=== PATIENT | female | born 1975 | race American Indian/Alaskan Native ===

== ENCOUNTER 2017-07-04 19:31 | Emergency (ER) | payer OTHER ==
[~2017-07-04] VITALS: Ht 154.9 cm; Wt 77.1 kg
[~2017-07-04 19:31] MED LIST: CIPRO500 MG PO; CYCLOBENZAPRINE5 MG PO; EPIPEN 2-P0.3 MG/0.3 IM; FLAGYL500 MG PO; LIDODERM700 MG TOP; LISINOPRIL20 MG PO; NAPROSYN500 MG PO; NORCO 5-325 TA1 EACH PO; PERCOCET 5-3251 EACH PO; PHENTERMINE H37.5 M1 PO; PHENTERMINE H37.5 MG PO; PREDNISONE20 MG PO; VICODIN 5-3001 EACH PO; WELLBUTRIN XL300 MG PO; ZOFRAN4 MG PO
[2017-07-04] MEDS ORDERED: TOPAMAX25 MG PO (19:52)
[2017-07-04] MEDS ORDERED: NAPROXEN500 MG PO (20:17)
== END 2017-07-04 20:38 | disposition home or self-care (01) ==
LOC: ED 19:31
DX: J11.1 Influenza due to unidentified influenza virus with other respiratory manifestations (principal); I10 Essential (primary) hypertension; Z90.49 Acquired absence of other specified parts of digestive tract; Z91.018 Allergy to other foods; Z88.2 Allergy status to sulfonamides; Z79.899 Other long term (current) drug therapy
CPT/HCPCS: 99283; J1100

== ENCOUNTER 2017-08-22 23:07 | Emergency (ER) | payer OTHER ==
[~2017-08-22] VITALS: Ht 154.9 cm; Wt 175.0 kg
[~2017-08-22 23:07] MED LIST changes: +NAPROXEN500 MG PO; +TOPAMAX25 MG PO
[2017-08-22] MEDS ORDERED: LISINOPRIL5 MG PO (23:15)
[2017-08-22] MEDS ORDERED: BENADRYL ALLERG25 MG PO (23:16)
[2017-08-22] MEDS ORDERED: AMOXICILLIN500 MG PO (23:32)
== END 2017-08-23 00:04 | disposition home or self-care (01) ==
LOC: ED 23:07
DX: H66.91 Otitis media, unspecified, right ear (principal); J06.9 Acute upper respiratory infection, unspecified; I10 Essential (primary) hypertension; F17.200 Nicotine dependence, unspecified, uncomplicated; Z88.2 Allergy status to sulfonamides; Z91.018 Allergy to other foods; Z79.899 Other long term (current) drug therapy
CPT/HCPCS: 99283

== ENCOUNTER 2019-04-15 15:57 | Emergency (ER) | payer OTHER ==
[~2019-04-15] VITALS: Ht 154.9 cm; Wt 88.5 kg
--- OUTSIDE RECORDS SUMMARY | ~2019-04-15 | XMS | Encounter Summary ---
Demographics + + + | Address | [address] | | | [place] [address] | + + + | Home Phone | | + + + | Preferred Language | Unknown | + + + | Marital Status | | + + + | Protestant Affiliation | Unknown | + + + | Race | or | + + + | Ethnic Group | Not or | + + + Author + + + | Author | [place] [facility] | + + + | Organization | [facility] [employer] [facility] | + + + | Address | Unknown | + + + | Phone | Unavailable | + + + Support + + +---------+ + | Name | Relationship | Address | Phone | + + +---------+ + | Rosemarie Song | ECON | Unknown | | + + +---------+ + Care Team Providers + +------+ + | Care Chef Kitchen Manager Name | Role | Phone | + +------+ + | Marcelle WillsP | PCP | | + +------+ + Encounter Details +--------+ + + + + | Date | Type | Department | Care Team | Description | +--------+ + + + + | 12/10/ | Procedure | [facility] | | | | 2019 | | [facility] | | | | | | [place] [facility] [address] | | | | | [address] | | | | | | Mailcode: [id number] | | | | | | [facility] | | | | | | and Healing, | | | | | | | | | | | | Floor [place], [place] | | | | | | [address] | | | | | | [phone] | | | +--------+ + + + + Social History + +-------+ +--------+------+ | Tobacco Use | Types | Packs/Day | Years | Date | | | | | Used | | + +-------+ +--------+------+ | Never Smoker | | | | | + +-------+ +--------+------+ + +---+---+---+ | Smokeless Tobacco: | | | | | Never Used | | | | + +---+---+---+ + + +---------+ + | Alcohol Use | Drinks/Week | oz/Week | Comments | + + +---------+ + | Yes | | | weekly | + + +---------+ + + + + | Sex Assigned at | Date Recorded | | | | + + + | Not on file | | + + + + + + + | Job Start Date | Occupation | Industry | + + + + | Not on file | Not on file | Not on file | + + + + + + + + | Travel History | Travel Start | Travel End | + + + + + + | No recent travel history available. | + + documented as of this encounter Plan of Treatment +--------+ + + + + | Date | Type | Specialty | Care Team | Description | +--------+ + + + + | 12/06/ | Procedure | Ophthalmology | | | | 2019 | | | | | +--------+ + + + + | 12/06/ | Office | Ophthalmology | Ankita Smith MD | | | 2019 | Visit | | [address] | | | | | | [place], [place] | | | | | | [address] | | | | | | [phone] | | | | | | | | +--------+ + + + + documented as of this encounter Procedures + +--------+ + + + | Procedure Name | Priori | Date/Time | Associated Diagnosis | Comments | | | ty | | | | + +--------+ + + + | AUTOMATED VISUAL | Routin | 12/10/2018 | Infantile or | Results for this | | FIELD, MCCARTHY | e | 10:14 AM | juvenile glaucoma | procedure are in the | | | | PDT | | results section. | + +--------+ + + + documented in this encounter Results AUTOMATED VISUAL FIELD, MCCARTHY (12/10/2018 10:14 AM PDT) + + + | Narrative | Performed At | + + + | Personal Assistant | [facility] | | DocumentationRight EyeThreshold: 24-2 Strategy: [facility] Reliability: [facility] | | good MD: -29.14 PSD: 8.68 Left EyeThreshold: 24-2 | | | Strategy: JOANNE Reliability: good MD: -3.1 PSD: 2.52 | | | Provider DocumentationRight EyeFoveal threshold: reduced Findings: | | | superior arcuate defect, inferior arcuate defect Interpretation: | | | no reference Left EyeFoveal threshold: normal Findings: | | | inferior arcuate defect, superior arcuate defect Interpretation: no | | | reference NotesDense, nearly altitudinal inferior and superior | | | defects ODOD central island, MD -29.14, baselineOS inf>sup arcs, MD | | | -3.10, baseline | | |Strategy: JOANNE | | |Reliability: good | | |MD: -3.1 | | |PSD: 2.52 | | | | | | | | |Provider Documentation | | |Right Eye | | |Foveal threshold: reduced | | |Findings: superior arcuate defect, inferior arcuate defect | | |Interpretation: no reference | | | | | | | | |Left Eye | | |Foveal threshold: normal | | |Findings: inferior arcuate defect, superior arcuate defect | | |Interpretation: no reference | | | | | | | | |Notes | | |Dense, nearly altitudinal inferior and superior defects OD | | |OD central island, MD -29.14, baseline | | |OS inf>sup arcs, MD -3.10, baseline | | | | | + + + + + + + + | Performing | Address | City/State/Zipcode | Phone Number | | Organization | | | | + + + + + | [facility] | [address] | [place] [address] | | | INSTITUTE | [facility]. 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
--- OUTSIDE RECORDS SUMMARY | ~2019-04-15 | XMS | Clinical Summary ---
Demographics + + + | Address | [address] | | | [place] [address] | + + + | Home Phone | | + + + | Preferred Language | Unknown | + + + | Marital Status | | + + + | Mandaeism Affiliation | Unknown | + + + | Race | Unknown | + + + | Ethnic Group | Unknown | + + + Author + + + | Author | [facility] | | | and [place] | + + + | Organization | [facility] | | | and [place] | + + + | Address | Unknown | + + + | Phone | Unavailable | + + + Support + + +---------+ + | Name | Relationship | Address | Phone | + + +---------+ + | Rosemarie Burgos | ECON | Unknown | | + + +---------+ + | Sawyer Lafleur ECON | Unknown | | + + +---------+ + Care Team Providers + +------+ + | Care Junior Linux Systems Administrator Name | Role | Phone | + +------+ + | Jeremie Levin DO | PCP | | + +------+ + Allergies No Known Allergies Medications + + + +---------+------+------+-------+ | Medication | Sig | Dispensed | Refills | Star | End | Statu | | | | | | t | Date | s | | | | | | Date | | | + + + +---------+------+------+-------+ | buPROPion | Take 300 mg by mouth | | 0 | | | Activ | | (WELLBUTRIN XL) 300 | every morning. | | | | | e | | mg 24 hr tablet | | | | | | | + + + +---------+------+------+-------+ | naproxen | Take 500 mg by mouth | | 0 | | | Activ | | (NAPROSYN) 500 mg | 2 times daily (with | | | | | e | | tablet | breakfast & | | | | | | | | dinner). | | | | | | + + + +---------+------+------+-------+ | | Take 1 tablet by | | 0 | | | Activ | | HYDROcodone-acetamin | mouth every 6 hours | | | | | e | | ophen (NORCO) 5-325 | as needed for Pain. | | | | | | | mg per tablet | | | | | | | + + + +---------+------+------+-------+ | phentermine 37.5 | Take 37.5 mg by | | 0 | | | Activ | | MG capsule | mouth every morning. | | | | | e | + + + +---------+------+------+-------+ | topiramate | Take 25 mg by mouth | | 0 | | | Activ | | (TOPAMAX) 25 mg | 2 times daily. | | | | | e | | tablet | | | | | | | + + + +---------+------+------+-------+ Active Problems + + + | Problem | Noted Date | + + + | Spondylosis without myelopathy or radiculopathy, lumbar region | 01/31/2016 | + + + | Trochanteric bursitis of left hip | 12/30/2014 | + + + | Sacroiliitis, not elsewhere classified | 11/11/2014 | + + + | Chronic low back pain-likely multifactorial | 11/11/2014 | + + + | DDD (degenerative disc disease), lumbar | 11/11/2014 | + + + Family History + + +------+ + | Medical History | Relation | Name | Comments | + + +------+ + | Arthritis | Mother | | | + + +------+ + | Bleeding problems | Mother | | | + + +------+ + | Clotting disorder | Mother | | | + + +------+ + | Diabetes | Mother | | | + + +------+ + | High blood pressure | Mother | | | + + +------+ + | Stroke | Mother | | | + + +------+ + + +------+--------+ + | Relation | Name | Status | Comments | + +------+--------+ + | Mother | | | | + +------+--------+ + Social History + +-------+ +--------+------+ | [...] + +---------+ + | Alcohol Use | Drinks/We | oz/Week | Comments | | | ek | | | + + +---------+ + | Yes | | | social | + + +---------+ + + + [...] recent travel history available. | + + Last Filed Vital Signs + + + + | Vital Sign | Reading | Time Taken | + + + + | Blood Pressure | 144/87 | 01/31/2016 1640 PDT | + + + + | Pulse | 85 | 12/05/2015808 PDT | + + + + | Temperature | - | - | + + + + | Respiratory Rate | 18 | 12/05/2015808 PDT | + + + + | Oxygen Saturation | - | - | + + + + | Inhaled Oxygen | - | - | | Concentration | | | + + + + | Weight | 73 kg (161 lb) | 12/05/2015808 PDT | + + + + | Height | 152.4 cm (5') | 12/05/2015808 PDT | + + + + | Body Mass Index | 31.44 | 12/05/2015808 PDT | + + + + Plan of Treatment + + + + + | Health Maintenance | Due Date | Last Done | Comments | + + + + + | Vaccine: | | | | | Dtap/Tdap/Td (1 - | 7 | | | | Tdap) | | | | + + + + + | Cervical Cancer | | | | | Screening (Pap) | 8 | | | + + + + + | Vaccine: Influenza | | | | | (#1) | 9 | | | + + + + + Results Not on filefrom Last 3 Months Insurance + +--------+ +--------+ +---------+--------+ | Payer | Benefi | Subscriber | Effect | Phone | Address | Type | | | t Plan | ID | luz maria | | | | | | / | | Dates | | | | | | Group | | | | | | + +--------+ +--------+ +---------+--------+ | [employer] | MODA | [id number] | | [phone] | | Medica | | MEDICAID HMO | HEALTH | | 016-Pr | 1 | | id | | | MDCD | | esent | | | | | | [place] | | | | | | + +--------+ +--------+ +---------+--------+ | [facility] | IHS | [id number] | | | | Indemn | | SERVICE | YELLOW | | 013-Pr | | | ity | | | HAWK | | esent | | | | + +--------+ +--------+ +---------+--------+ + +--------+ +--------+ + + | Guarantor Name | Accoun | Relation to | Date | Phone | Billing Address | | | t Type | Patient | of | | | | | | | | | | + +--------+ +--------+ + + | Aliza Song | Person | Self [birth year] | [address] | | | al/Fam | | 1976 | [phone] | [place] | | | [place] | | | [address] (Home) | [address] | + +--------+ +--------+ + + Advance Directives Patient has advance care planning documents on file. For more information, please contact:[facility] [place] [address]"
--- OUTSIDE RECORDS SUMMARY | ~2019-04-15 | XMS | Encounter Summary ---
Demographics + + + | Address | [address] | | | [place] [address] | + + + | Home Phone | | + + + | Preferred Language | Unknown | + + + | Marital Status | | + + + | Zoroastrianism Affiliation | Unknown | + + + | Race | or | + + + | Ethnic Group | Not or | + + + Author + + + | Author | [place] [facility] | + + + | Organization | [facility] | + + + | Address | Unknown | + + + | Phone | Unavailable | + + + Support + + +---------+ + | Name | Relationship | Address | Phone | + + +---------+ + | Rosemarie Song | ECON | Unknown | | + + +---------+ + Care Team Providers + +------+ + | Care Gin Feeder Name | Role | Phone | + +------+ + | Marcelle Wills | PCP | | + +------+ + Reason for Visit + + + | Reason | Comments | + + + | Care Questions | | + + + Encounter Details +--------+ + + + + | Date | Type | Department | Care Team | Description | +--------+ + + + + | 01/06/ | Telephone | [facility] | Ankita Smith MD | Care Questions | | 2019 | | [facility] | [address] | | | | | at [facility] [address] | [place], [place] | | | | | Ave Mailcode: | [address] | | | | | [address] | [phone] | | | | | Health and Healing, | | | | | | | | | | | | [place], [place] | | | | | | [address] | | | | | | [phone] | | | +--------+ + + + [...] Procedure | Ophthalmology | | | | 2020 | | | | | +--------+ + + + + | 12/06/ | Office | Ophthalmology | Ankita Smith MD | | | 2020 | Visit | | [address] | | | | | | [facility], [place] | | | | | | [address] | | | | | | [phone] | | | | | | | | +--------+ + + + + documented as of this encounter Visit Diagnoses Not on filedocumented in this encounter"
--- OUTSIDE RECORDS SUMMARY | ~2019-04-15 | XMS | Encounter Summary ---
Demographics + + + | Address | [address] | | | [place] [address] | + + + | Home Phone | | + + + | Preferred Language | Unknown | + + + | Marital Status | | + + + | Scientologist Affiliation | Unknown | + + + | Race | or | + + + | Ethnic Group | Not or | + + + Author + + + | Author | [place] [facility] | + + + | Organization | [facility] | + + + | Address | Unknown | + + + | Phone | Unavailable | + + + Support + + +---------+ + | Name | Relationship | Address | Phone | + + +---------+ + | Rosemarie Song | ECON | Unknown | | + + +---------+ + Care Team Providers + +------+ + | Care Molder Machine Name | Role | Phone | + [...] Care Questions | | 2019 | | [facility] | [address] | | | | | at [facility] [address] | [place], [place] | | | | | Ave Mailcode: | [address] | | | | | [address] | [phone] | | | | | Health and Healing, | | | | | | | | | | | | [place], [place] | | | | | | [address] | | | | | | [phone] | | | +--------+ + + + [...] [address] | | | | | | [facility] [place] [place] [place] | | | | | | [address] | | | | | | [phone] | | | | | | | | +--------+ + + + + documented as of this encounter Visit Diagnoses Not on filedocumented in this encounter"
--- OUTSIDE RECORDS SUMMARY | ~2019-04-15 | XMS | Encounter Summary ---
Demographics + + + | Address | [address] | | | [place] [address] | + + + | Home Phone | | + + + | Preferred Language | Unknown | + + + | Marital Status | | + + + | Sabianism Affiliation | Unknown | + + + | Race | or | + + + | Ethnic Group | Not or | + + + Author + + + | Author | [place] [facility] | + + + | Organization | [facility] [facility] | + + + | Address | Unknown | + + + | Phone | Unavailable | + + + Support + + +---------+ + | Name | Relationship | Address | Phone | + + +---------+ + | Rosemarie Song | ECON | Unknown | | + + +---------+ + Care Team Providers + +------+ + | Care Boilermaker Welder Name | Role | Phone | + +------+ + | Marcelle Wills | PCP | | + +------+ + Reason for Visit + + + | Reason | Comments | + + + | Refill Request | Brimonidine 0.2% | + + + Encounter Details +--------+--------+ + + + | Date | Type | Department | Care Team | Description | +--------+--------+ + + + | 01/05/ | Refill | [facility] | Ankita Smith MD | Refill Request | | 2019 | | [facility] | [address] | (Brimonidine 0.2%) | | | | at [facility] [address] | [place], [place] | | | | | Ave Mailcode: | [address] | | | | | [facility] | [phone] | | | | | Health and Healing, | | | | | | | | | | | | [place], [place] | | | | | | [address] | | | | | | [phone] | | | +--------+--------+ + + + [...] | +--------+ + + + + | 06/08/ | Office | Ophthalmology | Ankita Smith MD | | | 2019 | Visit | | [address] | | | | | | [place], [place] | | | | | | [address] | | | | | | [phone] | | | | | | | | +--------+ + + + + documented as of this encounter Visit Diagnoses + + | Diagnosis | + + | 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
--- OUTSIDE RECORDS SUMMARY | ~2019-04-15 | XMS | Encounter Summary ---
Demographics + + + | Address | [address] | | | [place] [address] | + + + | Home Phone | | + + + | Preferred Language | Unknown | + + + | Marital Status | | + + + | Zoroastrian Affiliation | Unknown | + + + | Race | or | + + + | Ethnic Group | Not or | + + + Author + + + | Author | [place] [facility] | + + + | Organization | [facility] | + + + | Address | Unknown | + + + | Phone | Unavailable | + + + Support + + +---------+ + | Name | Relationship | Address | Phone | + + +---------+ + | Rosemarie Song | ECON | Unknown | | + + +---------+ + Care Team Providers + +------+ + | Care Finance Effectiveness Manager Name | Role | Phone | + +------+ + | Marcelle Wills | PCP | | + +------+ + Reason for Visit + + + | Reason | Comments | + + + | Follow-up visit | | + + + Encounter Details +--------+---------+ + + + | Date | Type | Department | Care Team | Description | +--------+---------+ + + + | 04/15/ | Office | [facility] | Dahlia Daniels MD | Infantile or | | 2019 | Visit | [facility] | [address] | juvenile glaucoma | | | | at [facility] [address] | [place], [place] | (Primary Dx) | | | | Ave Mailcode: | [address] | | | | | [facility] | [phone] | | | | | Health and Healing, | | | | | | | | | | | | Floor [place], [place] | | | | | | [address] | | | | | | [phone] | | | +--------+---------+ + + + Social History + +-------+ [...] + + documented as of this encounter Progress Notes Ing, Dahlia Azul MD - 04/15/2019 9:30 AM PDT IMojgan COT, performed, elements noted in the Base Ophthalmology Exam, visual acuity, HVF. [facility] Progress Note 04/15/2019 PROBLEM-SPECIFIC ASSESSMENT & PLAN NOTES FOR CURRENT ENCOUNTER Infantile or juvenile glaucoma Overview Note: Overview note Last Updated 04/15/2019) Office Visit Written 04/15/2019 by Luzmaria [facility] Summary: Co-managed with: Dr. Moses, will see him for IOP checks and us for imaging and testskye rajan Gonio: Tmax: OD: 57 OS: 40 CCT: 537/564 Drop Allergies/Intolerances: STUDIES: Visual Field Interpretation ([facility] 12/10/2018) Myers 24-2 visual field OD central island, MD -29.14, baseline OS inf>sup arcs, MD -3.10, baseline Visual Field Interpretation ([facility] 04/15/2019) Myers 10-2 visual field OD central island remaining, MD -21.09, baseline OS possible trac inferior scotoma, MD -0.69, baseline OCT interpretation (12/10/2018) Type: Spectralis OD diffuse thinning and schisis, average RNFL thickness 49 um, baseline OS inferior>superior thinnin, average RNFL thickness 77 um, baseline Assessment & Plan Note: (Assessment & Plan note Last Updated 04/15/2019) Office Visit Written 04/15/2019 by Hortensia DOWD, indeterminate stage. - IOP stable in low teens on MTMT - would like IOP <15 mmHg initially - OCT confirms diffuse thinning OD, unknown if schesis playing into things - HVF 24-2 with progression since 2010, but patient untreated with IOP in 30-40's until e met Dr. Moses, so IOP now may be OK to stabilize duenas. - 10- today matches 24-2. - cont MMT OU - will cont. To watch very closely. - Preservative free artificial tears, gels, and ointments Presbyopia, both eyes - Noticing issues with near vision - Symptoms consistent with early presbyopia - Likely not related to topical glaucoma meds - to optom, Dr. Muñoz for further glasses Call for decreased vision, increased distortion, increased pain, new floaters or flashing l ights Follow up: Return in about 8 months (around 12/15/2019) for w/HVF 24-2, w/RNFL. Chief Complaint: Follow-up visit HPI: 3 mo f/u +VF Vision is more filmy OD>OS. When tired or bright outside, OD feel pressure. Last month and last week missed Latanoprost for a few days because didn't get refill from pharmacy before s he ran out. Eye meds: Dorzolamide/Timolol BID OU - 4:10am Brimonidine 0.2% TID OU - 4am Latanoprost 0.005% QHS OU - 8:30-9pm Marijuana smoking - 1-3x weekly No occupation listed. Current Outpatient Medications (Ophthalmic Medications) Medication Sig brimonidine Instill 1 drop into both eyes three times daily. dorzolamide HCl-timolol maleate Instill 1 drop into both eyes two times daily. Indicati ons: wide-angle glaucoma latanoprost Instill 1 drop into both eyes once daily at bedtime. Indications: wide-angl e glaucoma Current Outpatient Medications (Other) Medication Sig aspirin EC Take 81 mg by mouth once daily. buPROPion Take 75 mg by mouth three times daily. hydrALAZINE Take 25 mg by mouth four times daily. HYDROCHLOROTHIAZIDE ORAL Take 1 tablet by mouth. liraglutide (VICTOZA 2-ANA MARIA SUBQ) Inject under the skin (SUBC). losartan Take 50 mg by mouth once daily. Reviewed: Tobacco | Allergies | Meds | Problems | Med Hx | Surg Hx | Fam Hx | Soc Hx Examination: See Ophthalmology Module The equine pharmacology technician, under the supervision of the physician, is responsible for performing the f ollowing sections: RFV, ROS, PMH, PSH, SocHx, FH, Med list, Base Ophth Exam. The attending physician is responsible for the entire content of the note and has personall y performed the HPI and the physical examination DAHLIA DANIELS MD documented in this enco unter Plan of Treatment +--------+ + + + + | Date | Type | Specialty | Care Team | Description | +--------+ + + + + | 12/06/ | Procedure | Ophthalmology | | | | 2019 | | | | | +--------+ + + + + | 12/06/ | Office | Ophthalmology | Dahlia Daniels MD | | | 2019 | Visit | | [address] | | | | | | [place], [place] | | | | | | [address] | | | | | | [phone] | | | | | | | | +--------+ + + + + documented as of this encounter Visit Diagnoses + + | Diagnosis | + + | 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
--- OUTSIDE RECORDS SUMMARY | ~2019-04-15 | XMS | Encounter Summary ---
Demographics + + + | Address | [address] | | | [place] [address] | + + + | Home Phone | | + + + | Preferred Language | Unknown | + + + | Marital Status | | + + + | Advent Affiliation | Unknown | + + + | Race | or | + + + | Ethnic Group | Not or | + + + Author + + + | Author | [place] [email or web address] [facility] | + + + | Organization | [facility] [employer] [facility] | + + + | Address | Unknown | + + + | Phone | Unavailable | + + + Support + + +---------+ + | Name | Relationship | Address | Phone | + + +---------+ + | Rosemarie Song | ECON | Unknown | | + + +---------+ + Care Team Providers + +------+ + | Care Net Making Supervisor Name | Role | Phone | + +------+ + | Marcelle Wills | PCP | | + +------+ + Reason for Visit + + + | Reason | Comments | + + + | New Patient Visit | | + + + Office Visit - E/M Services (Routine) +--------+--------+ + + + + | Status | Reason | Specialty | Diagnoses / | Referred By | Referred To | | | | | Procedures | Contact | Contact | +--------+--------+ + + + + | Closed | | Ophthalmology | Diagnoses | Johann, | Ankita Smith | | | | | glaucoma | POONAM Ibanez | MD [address] | | | | | | [address] | [address] | | | | | | [address] | [place], [place] | | | | | | [address] | [address] | | | | | | [place], | Phone: | | | | | | [place] [address] | [phone] | | | | | | Phone: | Fax: | | | | | | [phone] | [phone] | | | | | | Fax: | | | | | | | [phone] | | +--------+--------+ + + + + Encounter Details +--------+---------+ + + + | Date | Type | Department | Care Team | Description | +--------+---------+ + + + | 11/17/ | Office | [facility] | Ankita Smith MD | Infantile or | | 2019 | Visit | [facility] | [address] | juvenile glaucoma | | | | at [facility] [address] | [facility] [place] | (Primary Dx) | | | | Ave Mailcode: | [address] | | | | | [facility] | [phone] | | | | | Health and [facility], | | | | | | Building | | | | | | Floor [place], [place] | | | | | | [address] | | | | | | [phone] | | | +--------+---------+ + + + [...] documented as of this encounter Progress Notes Ankita Smith MD - 11/17/2018 1:40 PM PDT Returning Patient: 11/17/2018 Chief Complaint/HPI: Aliza Decker is a 42 y.o. female here today with Ocular HTN OU. Patient states that she does have eye pain OD, she says it has gotten worse over the last t hree weeks. She describes it as pressure pain. Very light sensitive. No pain OS. States that vision is worse since starting the drops. She says she is unable to see her cell phone or t hings at near with her glasses on, better without correction. OD vision is poor, started jorge earing worse about 3 weeks ago and has gotten worse over time. She does not feel as if she i s seeing much out of her peripherals. Has been using drops faithfully since starting them. S tarted her eye drops last week, not using drops prior. Eye meds: not leaving time between instillations - started drops 6 days ago Azopt 1% TID OU - 7:00am Brimonidine 0.2% TID OU - 7:00am Latanoprost 0.005% QHS OU - 9:00pm Istalol BID OU - 7:00am AT rarely Marijuana smoking - 1-3x weekly Swetha Dumont, performed and reviewed the above history, medications, allergies, as wel l as performed elements noted in the Base Ophthalmology Exam. POHx and Sx: BELENAG (Dx'd ~36 yo) Glaucoma Summary: Gonio: Tmax: OD: 57 OS: 40 CCT: 537/564 Drop Allergies/Intolerances: STUDIES: Assessment/Plan: Aliza Decker is a 42 y.o. female with: JOAG, indeterminate stage. - IOP great now, but may increase once honeymoon phase is over - would like IOP >15 mmHg initially - oct and hvf next visit - photos today - cont MMT OU - Preservative free artificial tears, gels, and ointments Follow up: Return in about 3 weeks (around 12/08/2018) for w/HVF 24-2, w/RNFL. Attestations: The criminalist technician, under my supervision, is responsible for performing the following sections: RFV, ROS, PMH, PSH, SocHx, FH, Med list, Base Ophth Exam. I have reviewed and edited history and criminalist technician documentation, and performed all elements to above examination documentation. Ankita Smith MD Marketing Administrator of Ophthalmology Department of Glaucoma [facility] [place] FURTHER HISTORY: Past Medical History: Diagnosis Date Asthma due to environmental allergies from [facility] Depression from [facility] DM (diabetes mellitus), type 2 (HCC) Borderline Hypertension from [facility] records Past Surgical History Procedure Laterality Date section from [facility] records Gallbladder removal from [facility] Knee surgery from [facility] records Wrist surgery plate - left Appendectomy Allergies: Patient has no known allergies. Pt reports that she has never smoked. She has never used smokeless tobacco. She reports th at she drinks alcohol. She reports that she has current or past drug history. EXAM: Not recorded Family history of glaucoma? No known History of eye trauma? No Asthma/COPD? Yes - asthma with allergies Hypotension/Shock history? No Migraines/Raynauds? Yes - rare migraine Steroid use? Yes- in the past post surgery Kidney stones? No Driving? Yes, day only/rarely at night Contact lens wear? Yes, soft lenses/rarely Flomax use? 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 | + +--------+ + + + | [facility] | Routin | 11/17/2018 | Infantile or | | | EVANETA SCOTTISCOPY | e | 2:45 PM | juvenile glaucoma | | | | | PDT | | | + +--------+ + + + documented in this encounter Results FUNDUS PHOTOS (11/17/2018 3:12 PM PDT) + + + | Narrative | Performed At | + + + | Component Overhaul Operator | [facility] | | DocumentationType was 2x disc photos. NotesSuperior and inferior | [facility] | | erosion OD. Relatively full rim OS. | | |Notes | | |Superior and inferior erosion OD. | | |Relatively full rim OS. | | + + + + + + + + | Performing | Address | City/State/Zipcode | Phone Number | | Organization | | | | + + + + + | [facility] | [address] | [place] [address] | | | INSTITUTE | [address] 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
--- OUTSIDE RECORDS SUMMARY | ~2019-04-15 | XMS | Encounter Summary ---
Demographics + + + | Address | [address] | | | [place] [address] | + + + | Home Phone | | + + + | Preferred Language | Unknown | + + + | Marital Status | | + + + | Congregational Affiliation | Unknown | + + + | Race | or | + + + | Ethnic Group | Not or | + + + Author + + + | Author | [place] [employer] [facility] | + + + | Organization | [facility] | + + + | Address | Unknown | + + + | Phone | Unavailable | + + + Support + + +---------+ + | Name | Relationship | Address | Phone | + + +---------+ + | Rosemarie Song | ECON | Unknown | | + + +---------+ + Care Team Providers + +------+ + | Care Bottle Label Inspector Name | Role | Phone | + [...] Refill Request | | 2019 | | [facility] | [address] | (Brimonidine 0.2%) | | | | at [facility] [address] | [place], [place] | | | | | Ave Mailcode: | [address] | | | | | [facility] | [phone] | | | | | Health and Healing, | | | | | | | | | | | | [place], [place] | | | | | | [address] | | | | | | [phone] | | | +--------+--------+ + + + [...] | | 2019 | Visit | | [address] | | | | | | [place], [place] | | | | | | [address] | | | | | | [phone] | | | | | | | | +--------+ + + + + documented as of this encounter Visit Diagnoses + + | Diagnosis | + + | 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
--- OUTSIDE RECORDS SUMMARY | ~2019-04-15 | XMS | Encounter Summary ---
Demographics + + + | Address | [address] | | | [place] [address] | + + + | Home Phone | | + + + | Preferred Language | Unknown | + + + | Marital Status | | + + + | Presybeterian Affiliation | Unknown | + + + | Race | or | + + + | Ethnic Group | Not or | + + + Author + + + | Author | [place] [employer] [facility] | + + + | Organization | [facility] [employer] [facility] | + + + | Address | Unknown | + + + | Phone | Unavailable | + + + Support + + +---------+ + | Name | Relationship | Address | Phone | + + +---------+ + | Rosemarie Song | ECON | Unknown | | + + +---------+ + Care Team Providers + +------+ + | Care Seamless Tube Mill Operator Name | Role | Phone | [...] [address] | | | | | | [address] | [address] | | | | | | [address] | [place], [place] | | | | | | [address] | [address] | | | | | | [place], | Phone: | | | | | | [place] [address] | [phone] | | | | | | Phone: | Fax: | | | | | | [phone] | [phone] | | | | | | Fax: | | | | | | | [phone] | | +--------+--------+ + + + + Encounter Details +--------+---------+ + + + | Date | Type | Department | Care Team | Description | +--------+---------+ + + + | 12/10/ | Office | [facility] | Ankita Smith MD | Infantile or | | 2019 | Visit | [facility] | [address] | juvenile glaucoma | | | | at [facility] [address] | [place], [place] | (Primary Dx) | | | | Ave Mailcode: | [address] | | | | | [address] | [phone] | | | | | Health and Healing, | | | | | | | | | | | | Floor [place], [place] | | | | | | [address] | | | | | | [phone] | | | +--------+---------+ + + + [...] 537/564 Drop Allergies/Intolerances: STUDIES: Visual Field Interpretation ([facility] 12/10/2018) Myers 24-2 visual field OD [...] gels, and ointments - Dr. Robertson at [facility] has duenas Presbyopia, both eyes - Noticing issues with near vision - Symptoms consistent with early presbyopia - Likely not related to topical glaucoma meds - Discussed taking off glasses to read, use of OTC readers, or new MRx for bifocals with op tanisha Follow up: No follow-ups on file. Attestations: The laboratory mechanical technician, under my supervision, is responsible for performing the following sections: RFV, ROS, PMH, PSH, SocHx, FH, Med list, Base Ophth Exam. I have reviewed and edited history and laboratory mechanical technician documentation, and performed all elements to above examination documentation. Ankita Smith MD Pattern Illustrator of Ophthalmology Department of Glaucoma [facility] FURTHER HISTORY: Family history of glaucoma? No known History of eye trauma? No Asthma/COPD? Yes - asthma with allergies Hypotension/Shock history? No Migraines/Raynauds? Yes - rare migraine Steroid use? Yes- in the past post surgery Kidney stones? No Driving? Yes, day only/rarely at night Contact lens wear? Yes, soft lenses/rarely Flomax use? 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 documented in this enc ounter Plan of Treatment +--------+ + + + [...] | | 2019 | Visit | | [address] | | | | | | [place], [place] | | | | | | [address] | | | | | | [phone] | | | | | | | [...] + + | [facility] | [address] | [place] [address] | | | INSTITUTE | Bharath. 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
--- OUTSIDE RECORDS SUMMARY | ~2019-04-15 | XMS | Encounter Summary ---
Demographics + + + | Address | [address] | | | [place] [address] | + + + | Home Phone | | + + + | Preferred Language | Unknown | + + + | Marital Status | | + + + | Mu-Ism Affiliation | Unknown | + + + | Race | or | + + + | Ethnic Group | Not or | + + + Author + + + | Author | [place] [employer] [facility] | + + + | Organization | Replaced By [facility] | + + + | Address | Unknown | + + + | Phone | Unavailable | + + + Support + + +---------+ + | Name | Relationship | Address | Phone | + + +---------+ + | Rosemarie Song | ECON | Unknown | | + + +---------+ + Care Team Providers + +------+ + | Care Air Launch Weapons Technician Name | Role | Phone | + +------+ + | Marcelle WillsP | PCP | | + +------+ + Encounter Details +--------+ + + + + | Date | Type | Department | Care Team | Description | +--------+ + + + + | 04/15/ | Procedure | [facility] | Ankita Smith MD | | | 2019 | | [facility] | [address] | | | | | [place] at [facility] [address] | [place], [place] | | | | | [address] | [address] | | | | | [facility]code: [facility] | [phone] | | | | | [facility] | | | | | | paulina Garza, | | | | | | [facility] | | | | | | [place], [place] | | | | | | [address] | | | | | | [phone] | | | +--------+ + + + [...] [address] | | | | | | [place], [place] | | | | | | [address] | | | | | | [phone] | | | | | | | [...] Performed At | + + + | Aluminum Siding Mechanic | [facility] | | DocumentationRight EyeThreshold: 10-2 Strategy: JOANNE Reliability: | [facility] | | good MD: -21.09 PSD: 14.09 Left EyeThreshold: 10-2 | | | Strategy: JOANNE Reliability: good MD: -0.69 PSD: 1.51 | | | NotesVisual Field Interpretation ([facility] 04/15/2019)Myers 10-2 visual | | | fieldOD [...] | |Notes | | |Visual Field Interpretation ([facility] 04/15/2019) | | |Myers 10-2 visual field [...] + + | [facility] | [address] | [place] [address] | | | INSTITUTE | Bharath. 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
--- OUTSIDE RECORDS SUMMARY | ~2019-04-15 | XMS | Encounter Summary ---
Demographics + + + | Address | [address] | | | [place] [address] | + + + | Home Phone | | + + + | Preferred Language | Unknown | + + + | Marital Status | | + + + | Congregational Affiliation | Unknown | + + + | Race | or | + + + | Ethnic Group | Not or | + + + Author + + + | Author | [place] [employer] [facility] | + + + | Organization | [facility] [employer] [facility] | + + + | Address | Unknown | + + + | Phone | Unavailable | + + + Support + + +---------+ + | Name | Relationship | Address | Phone | + + +---------+ + | Rosemarie Song | ECON | Unknown | | + + +---------+ + Care Team Providers + +------+ + | Care Wealth Management Consultant Name | Role | Phone | + +------+ + | Marcelle WillsP | PCP | | + +------+ + Encounter Details +--------+ + + + + | Date | Type | Department | Care Team | Description | +--------+ + + + + | 04/15/ | Procedure | [facility] | Ankita Smith MD | | | 2019 | | [facility] | [address] | | | | | [place] at [facility] [address] | [place], [place] | | | | | [address] | [address] | | | | | Mailcode: [facility] | [phone] | | | | | [facility] | | | | | | paulina [address], | | | | | | [facility] | | | | | | [place], [place] | | | | | | [address] | | | | | | [phone] | | | +--------+ + + + [...] [address] | | | | | | [place], [place] | | | | | | [address] | | | | | | [phone] | | | | | | | [...] Performed At | + + + | Polymerization Oven Operator | [facility] | | DocumentationRight EyeThreshold: 10-2 Strategy: JOANNE Reliability: | [facility] | | good MD: -21.09 PSD: 14.09 Left EyeThreshold: 10-2 | | | Strategy: JOANNE Reliability: good MD: -0.69 PSD: 1.51 | | | NotesVisual Field Interpretation ([facility] 04/15/2019)Myers 10-2 visual | | | fieldOD [...] | |Notes | | |Visual Field Interpretation ([facility] 04/15/2019) | | |Myers 10-2 visual field [...] + + | [facility] | [address] | [place] [address] | | | INSTITUTE | Bharath. 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
--- OUTSIDE RECORDS SUMMARY | ~2019-04-15 | XMS | Encounter Summary ---
Demographics + + + | Address | [address] | | | [place] [address] | + + + | Home Phone | | + + + | Preferred Language | Unknown | + + + | Marital Status | | + + + | Yazidism Affiliation | Unknown | + + + | Race | or | + + + | Ethnic Group | Not or | + + + Author + + + | Author | [place] [employer] [facility] | + + + | Organization | [facility] | + + + | Address | Unknown | + + + | Phone | Unavailable | + + + Support + + +---------+ + | Name | Relationship | Address | Phone | + + +---------+ + | Rosemarie Song | ECON | Unknown | | + + +---------+ + Care Team Providers + +------+ + | Care Metal Ceiling Hanger Name | Role | Phone | + [...] [address] | | | | | | [address] | [address] | | | | | | [address] | [place], [place] | | | | | | [address] | [address] | | | | | | [place], | Phone: | | | | | | [place] [address] | [phone] | | | | | | Phone: | Fax: | | | | | | [phone] | [phone] | | | | | | Fax: | | | | | | | [phone] | | +--------+--------+ + + + + Encounter Details +--------+---------+ + + + | Date | Type | Department | Care Team | Description | +--------+---------+ + + + | 12/10/ | Office | [facility] | Ankita Smith MD | Infantile or | | 2019 | Visit | [facility] | [address] | juvenile glaucoma | | | | at [facility] [address] | [place], [place] | (Primary Dx) | | | | Ave Mailcode: | [address] | | | | | [address] | [phone] | | | | | Health and Healing, | | | | | | | | | | | | Floor [place], [place] | | | | | | [address] | | | | | | [phone] | | | +--------+---------+ + + + [...] 537/564 Drop Allergies/Intolerances: STUDIES: Visual Field Interpretation ([facility] 12/10/2018) Myers 24-2 visual field [...] gels, and ointments - Dr. Robertson at [facility] has duenas Presbyopia, both eyes - Noticing issues with near vision - Symptoms consistent with early presbyopia - Likely not related to topical glaucoma meds - Discussed taking off glasses to read, use of OTC readers, or new MRx for bifocals with op tanisha Follow up: No follow-ups on file. Attestations: The billing and quality technician, under my supervision, is responsible for performing the following sections: RFV, ROS, PMH, PSH, SocHx, FH, Med list, Base Ophth Exam. I have reviewed and edited history and billing and quality technician documentation, and performed all elements to above examination documentation. Ankita Smith MD Miller Apprentice of Ophthalmology Department of Glaucoma [facility] [place] FURTHER HISTORY: Family history of glaucoma? No known History of eye trauma? No Asthma/COPD? Yes - asthma with allergies Hypotension/Shock history? No Migraines/Raynauds? Yes - rare migraine Steroid use? Yes- in the past post surgery Kidney stones? No Driving? Yes, day only/rarely at night Contact lens wear? Yes, soft lenses/rarely Flomax use? 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
--- OUTSIDE RECORDS SUMMARY | ~2019-04-15 | XMS | Encounter Summary ---
Demographics + + + | Address | [address] | | | [place] [address] | + + + | Home Phone [...] Team Providers + +------+ + | Care Film Composer Name | Role | Phone | + [...] [address] | | | | | | [place] | | | | | | [address] | | | | | | [phone] | | | | | | | | +--------+ + + + + documented as of this encounter Visit Diagnoses Not on filedocumented in this encounter"
--- OUTSIDE RECORDS SUMMARY | ~2019-04-15 | XMS | Encounter Summary ---
Demographics + + + | Address | [address] | | | [place] [address] | + + + | Home Phone | | + + + | Preferred Language | Unknown | + + + | Marital Status | | + + + | Yazidi Affiliation | Unknown | + + + [...] Team Providers + +------+ + | Care Design Maker Name | Role | Phone | + [...] [address] | | | | | | [place] | | | | | | [address] | | | | | | [phone] | | | | | | | | +--------+ + + + + documented as of this encounter Visit Diagnoses Not on filedocumented in this encounter"
--- OUTSIDE RECORDS SUMMARY | ~2019-04-15 | XMS | Encounter Summary ---
Demographics + + + | Address | [address] | | | [place] [address] | + + + | Home Phone | | + + + | Preferred Language | Unknown | + + + | Marital Status | | + + + | Congregation Affiliation | Unknown | + + + [...] Team Providers + +------+ + | Care Stock Order Lister Name | Role | Phone | + [...] [address] | | | | | | [place] | | | | | | [address] | | | | | | [phone] | | | | | | | | +--------+ + + + + documented as of this encounter Visit Diagnoses Not on filedocumented in this encounter"
--- OUTSIDE RECORDS SUMMARY | ~2019-04-15 | XMS | Encounter Summary ---
Demographics + + + | Address | [address] | | | [place] [address] | + + + | Home Phone [...] + + + | Author | [place] [employer] [facility] | + + + | Organization | [facility] [employer] [facility] | + + + | Address | Unknown | + + + | Phone | Unavailable | + + + Support + + +---------+ + | Name | Relationship | Address | Phone | + + +---------+ + | Rosemarie Song | ECON | Unknown | | + + +---------+ + Care Team Providers + +------+ + | Care Building Certifier Name | Role | Phone | + [...] or | | 2019 | Visit | [facility] | [address] | juvenile glaucoma | | | | at [facility] [address] | [place], [place] | (Primary Dx) | | | | Ave Mailcode: | [address] | | | | | [facility] | [phone] | | | | | Health and Healing, | | | | | | | | | | | | Floor [place], [place] | | | | | | [address] | | | | | | [phone] | | | +--------+---------+ + + + [...] acuity, HVF. [facility] Progress Note 04/15/2019 PROBLEM-SPECIFIC ASSESSMENT & PLAN NOTES FOR CURRENT ENCOUNTER Infantile or juvenile glaucoma Overview Note: Overview note Last Updated 04/15/2019) Office Visit Written 04/15/2019 by Luzmaria Chase Glaucoma Summary: Co-managed with: Dr. Moses, will see him for IOP checks and us for imaging and testskye rajan Gonio: Tmax: OD: 57 OS: 40 CCT: 537/564 Drop Allergies/Intolerances: STUDIES: Visual Field Interpretation ([facility] 12/10/2018) Myers 24-2 visual field OD central island, MD -29.14, baseline OS inf>sup arcs, MD -3.10, baseline Visual Field Interpretation ([facility] 04/15/2019) Myers 10-2 visual field OD central [...] Soc Hx Examination: See Ophthalmology Module The ink technician, under the supervision of the physician, [...] Wolf | | | | | | [place], [place] | | | | | | [address] | | | | | | [phone] | | | | | | | | +--------+ + + + + documented as of this encounter Visit Diagnoses + + | Diagnosis | + + | 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
--- OUTSIDE RECORDS SUMMARY | ~2019-04-15 | XMS | Clinical Summary ---
Demographics + + + | Address | [address] | | | [place] [address] | + + + | Home Phone | | + + + | Preferred Language | Unknown | + + + | Marital Status | | + + + | Methodist Affiliation | Unknown | + + + [...] Team Providers + +------+ + | Care Court Worker Name | Role | Phone | + +------+ + | Marcelle Wills FUEL SYSTEM MAINTENANCE SUPERVISOR | PCP | | + +------+ + Source Comments [facility] is fully live on both [facility] Amb[facility] and [facility] InPatient.[facility] Allergies No Known Allergies Medications + + [...] into | 2.5 mL | 6 | 05/2 | | Activ | | % ophthalmic (eye) | both eyes once daily | | | 0/20 | | e | | dropsIndications: | at bedtime. | | | 19 | | | | open angle glaucoma | Indications: | | | | | | | | wide-angle glaucoma | | | | | | + + + +---------+------+------+-------+ | brimonidine 0.2 % | Instill 1 drop into | 15 mL | 5 | 07/0 | | Activ | | ophthalmic (eye) | both eyes three | | | 02/17 | | e | | drops | times daily. | | | 19 | | | + + + +---------+------+------+-------+ | | Take 1 tablet by | | 0 | 05/1 | | Activ | | HYDROCHLOROTHIAZIDE | mouth. | | | 12/18 | | e | | ORAL | [...] Allergies/Intolerances: STUDIES: Visual Field Interpretation | | ([facility] 12/10/2018)Myers 24-2 visual fieldOD central island, MD | | -29.14, baselineOS inf>sup arcs, MD -3.10, baselineVisual Field | | Interpretation ([facility] 04/15/2019)Myers 10-2 visual fieldOD | | central [...] if schesis | | playing into things- [facility] 24-2 with progression since 2010, but | [...] evans for further glasses | + + Encounters +--------+ + + + + | Date | Type | Specialty | Care Team | Description | +--------+ + + + + | 04/15/ | Office | Ophthalmology | Ankita Smith MD | Infantile or | | 2018 | Visit | | | juvenile glaucoma | | | | | | (Primary Dx) | +--------+ + + + + | 04/15/ | Procedure | Ophthalmology | Ankita Smith MD | | | 2019 | | | | | +--------+ + + + + | 04/15/ | Travel | | | | | 2018 | | | | | +--------+ + + + + from Last 3 Months Family History + + +------+ + | [...] Signs Not on file Plan of Treatment +--------+ + + + [...] Wolf | | | | | | [place], [place] | | | | | | [address] | | | | | | [phone] | | | | | | | | +--------+ + + + + + + + + + | Health Maintenance | Due Date | Last Done | Comments | + + + + + | Influenza (Flu) | | | | | vaccination (#1) | 9 | | | + + + + + | Pneumococcal | Aged Out | | No longer eligible | | vaccination | | | based on patient's | | | | | age to complete this | | | | | topic | + + + + + Procedures + +--------+ + + + | [...] section. | + +--------+ + + + from Last 3 Months Results AUTOMATED VISUAL FIELD, MYERS (04/15/2019 9:21 AM PDT) + + + | Narrative | Performed At | + + + | Diesel Powerplant Mechanic Helper | [facility] | | DocumentationRight EyeThreshold: 10-2 Strategy: JOANNE Reliability: | [facility] | | good MD: -21.09 PSD: 14.09 Left EyeThreshold: 10-2 | | | Strategy: JOANNE Reliability: good MD: -0.69 PSD: 1.51 | | | NotesVisual Field Interpretation ([facility] 04/15/2019)Myers 10-2 visual | | [...] | |Notes | | |Visual Field Interpretation ([facility] 04/15/2019) | | |Myers 10-2 [...] + + | [facility] | [address] | [place] [address] | | | CHAY | Bharath. | | | + + + + + from Last 3 Months Insurance + +--------+ +--------+ [...] CROSS | | 19-Pre | 8 | [address] | | | | [place] | | sent | | [place], | | | | L | | | | [place] [address] | | + +--------+ +--------+ + +--------+ | HEALTH | | xxx | Effect | | | Agency | [...] | Self | [birth year] | [address] | | | al/William | | 1976 | [phone] | [place] | | | [place] | | | 9 (Home) | [address] | + +--------+ +--------+ + + | Aliza Decker | Vision | Self | | | [address] | | | | | | [phone] | [place] | | | | | | 9 ([place]) | [address] | + +--------+ +--------+ + +"
--- OUTSIDE RECORDS SUMMARY | ~2019-04-15 | XMS | Encounter Summary ---
Demographics + + + | Address | [address] | | | [place] [address] | + + + | Home Phone [...] Team Providers + +------+ + | Care Portrait Photographer Name | Role | Phone | + [...] Wolf | | | | | | [place] | | | | | | [address] | | | | | | [phone] | | | | | | | | +--------+ + + + + documented as of this encounter Visit Diagnoses Not on filedocumented in this encounter"
--- OUTSIDE RECORDS SUMMARY | ~2019-04-15 | XMS | Clinical Summary ---
Demographics + + + | Address | [address] | | | [place] [address] | + + + | Home Phone | | + + + | Preferred Language | Unknown | + + + | Marital Status | | + + + | Moravian Affiliation | Unknown | + + + | Race | Unknown | + + + | Ethnic Group | Unknown | + + + Author + + + | Author | [facility] | | | and [place] | + + + | Organization | Located [facility] | | | and [...] Team Providers + +------+ + | Care Hand Welt Butter Name | Role | Phone | + [...] | [employer] | MODA | [id number] | | [phone] | | Medica | | MEDICAID HMO | HEALTH | | [id number]-Pr | 1 | | id | | | MDCD | | esent | | | | | | [place] | | | | | | + +--------+ +--------+ +---------+--------+ | [facility] | IHS | [id number] | | | | Indemn | | [...] ishan | | | 9 (Home) | [address] | + +--------+ +--------+ + + Advance Directives Patient has advance care planning documents on file. For more information, please contact:[facility] [place] [address]"
--- OUTSIDE RECORDS SUMMARY | ~2019-04-15 | XMS | Encounter Summary ---
Demographics + + + | Address | [address] | | | [place] [address] | + + + | Home Phone | | + + + | Preferred Language | Unknown | + + + | Marital Status | | + + + | Druze Affiliation | Unknown | + + + | Race | or | + + + | Ethnic Group | Not or | + + + Author + + + | Author | [place] [employer] [facility] | + + + | Organization | [facility] [employer] [facility] | + + + | Address | Unknown | + + + | Phone | Unavailable | + + + Support + + +---------+ + | Name | Relationship | Address | Phone | + + +---------+ + | Rosemarie Song | ECON | Unknown | | + + +---------+ + Care Team Providers + +------+ + | Care Equine Pharmacology Technician Name | Role | Phone | [...] [address] | | | | | | [address] | [address] | | | | | | [address] | [place], [place] | | | | | | [address] | [address] | | | | | | [place], | Phone: | | | | | | [place] [address] | [phone] | | | | | | Phone: | Fax: | | | | | | [phone] | [phone] | | | | | | Fax: | | | | | | | [phone] | | +--------+--------+ + + + + Encounter Details +--------+---------+ + + + | Date | Type | Department | Care Team | Description | +--------+---------+ + + + | 11/17/ | Office | [facility] | Ankita Smith MD | Infantile or | | 2019 | Visit | [facility] | [address] | juvenile glaucoma | | | | at [facility] [address] | [facility] [place] | (Primary Dx) | | | | Ave Mailcode: | [address] | | | | | [facility] | [phone] | | | | | Health and [facility], | | | | | | Building | | | | | | Floor [place], [place] | | | | | | [address] | | | | | | [phone] | | | +--------+---------+ + + + [...] as of this encounter Progress Notes Ankita mSith MD - 11/17/2018 1:40 PM PDT Returning [...] 12/08/2018) for w/HVF 24-2, w/RNFL. Attestations: The civilian technician, under my supervision, is responsible for performing the following sections: RFV, ROS, PMH, PSH, SocHx, FH, Med list, Base Ophth Exam. I have reviewed and edited history and civilian technician documentation, and performed all elements to above examination documentation. Ankita Smith MD Network Cabler of Ophthalmology Department of Glaucoma [facility] FURTHER HISTORY: Past Medical History: Diagnosis Date [...] Yes, soft lenses/rarely Flomax use? 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
--- OUTSIDE RECORDS SUMMARY | ~2019-04-15 | XMS | Clinical Summary ---
Demographics + + + | Address | [address] | | | [place] [address] | + + + | Home Phone [...] Team Providers + +------+ + | Care Box Blank Machine Feeder Name | Role | Phone | + +------+ + | Marcelle Wills WRITING CENTER DIRECTOR | PCP | | + +------+ + Source Comments SVETLANA is fully live on both [facility] Ambulatory and [facility] InPatient.[facility] Allergies No Known Allergies Medications + [...] Allergies/Intolerances: STUDIES: Visual Field Interpretation | | ([facility] 12/10/2018)Myers 24-2 visual fieldOD central island, MD | | -29.14, baselineOS inf>sup arcs, MD -3.10, baselineVisual Field | | Interpretation ([facility] 04/15/2019)Myers 10-2 visual fieldOD | | [...] if schesis | | playing into things- [facility] 24-2 with progression since 2010, but [...] Wolf | | | | | | [place], [place] | | | | | | [address] | | | | | | [phone] | | | | | | | [...] Performed At | + + + | Cognos Architect | [facility] | | DocumentationRight EyeThreshold: 10-2 Strategy: JOANNE Reliability: | [facility] | | good MD: -21.09 PSD: 14.09 Left EyeThreshold: 10-2 | | | Strategy: JOANNE Reliability: good MD: -0.69 PSD: 1.51 | | | NotesVisual Field Interpretation ([facility] 04/15/2019)Myers 10-2 visual | | | [...] | |Notes | | |Visual Field Interpretation ([facility] 04/15/2019) | | |Myers 10-2 visual [...] [facility] | [address] | [place] [address] | | | CHAY | Bharath. | [...] CROSS | | 19-Pre | 8 | [address] | | | | [place] | | sent | | [place], | | | | L | | | | [place] [address] | | + +--------+ +--------+ + +--------+ [...] [place]han | | | 9 (Home) | [address] | + +--------+ +--------+ + + | Aliza Decker | Vision | Self | | | [address] | | | | | | [phone] | [place] | | | | | | 9 ([place]) | [address] | + +--------+ +--------+ + +"
--- OUTSIDE RECORDS SUMMARY | ~2019-04-15 | XMS | Encounter Summary ---
Demographics + + + | Address | [address] | | | [place] [address] | + + + | Home Phone [...] Team Providers + +------+ + | Care Fire Prevention Chief Name | Role | Phone | + [...] Wolf | | | | | | [place] | | | | | | [address] | | | | | | [phone] | | | | | | | | +--------+ + + + + documented as of this encounter Visit Diagnoses Not on filedocumented in this encounter"
--- OUTSIDE RECORDS SUMMARY | ~2019-04-15 | XMS | Encounter Summary ---
Demographics + + + | Address | [address] | | | [place] [address] | + + + | Home Phone | | + + + | Preferred Language | Unknown | + + + | Marital Status | | + + + | Orthodoxy Affiliation | Unknown | + + + [...] Team Providers + +------+ + | Care Supply Chain Program Manager Name | Role | Phone | [...] Wolf | | | | | | [place] | | | | | | [address] | | | | | | [phone] | | | | | | | | +--------+ + + + + documented as of this encounter Visit Diagnoses Not on filedocumented in this encounter"
--- OUTSIDE RECORDS SUMMARY | ~2019-04-15 | XMS | Encounter Summary ---
Demographics + + + | Address | [address] | | | [place] [address] | + + + | Home Phone [...] + + + | Author | [place] [employer] [facility] | + + + | Organization | [facility] [employer] [facility] | + + + | Address | Unknown | + + + | Phone | Unavailable | + + + Support + + +---------+ + | Name | Relationship | Address | Phone | + + +---------+ + | Rosemarie Song | ECON | Unknown | | + + +---------+ + Care Team Providers + +------+ + | Care Product Development Technician Name | Role | Phone | + +------+ + | Marcelle WillsP | PCP | | + +------+ + Encounter Details +--------+ + + + + | Date | Type | Department | Care Team | Description | +--------+ + + + + | 12/10/ | Procedure | [facility] | | | | 2019 | | [place] [facility] | | | | | | [place] at [facility] [address] | | | | | [address] | | | | | | Mailcode: CH11P | | | | | | [facility] | | | | | | and Healing, | | | | | | | | | | | | Floor [place], [place] | | | | | | [address] | | | | | | [phone] | | | +--------+ + + + [...] Wolf | | | | | | [place], [place] | | | | | | [address] | | | | | | [phone] | | | | | | | [...] Performed At | + + + | Food Specialist | [facility] | | DocumentationRight EyeThreshold: [...] + + | [facility] | [address] | [place] [address] | | | INSTITUTE | Bharath. 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
[~2019-04-15 15:57] MED LIST changes: +AMOXICILLIN500 MG PO; +BENADRYL ALLERG25 MG PO; +LISINOPRIL5 MG PO
[2019-04-15] MEDS ORDERED: VICTOZA 2-0.6 MG/0.1 SUB-Q (19:11)
[2019-04-15] MEDS ORDERED: ZESTRIL5 MG PO (19:11)
[2019-04-15] MEDS ORDERED: CIPRO500 MG PO (19:27)
[2019-04-15] MEDS ORDERED: ZOFRAN4 MG PO (19:27)
[2019-04-15] MEDS ORDERED: FLAGYL500 MG PO (19:27)
[2019-04-15] MEDS ORDERED: ULTRAM50 MG PO (19:27)
== END 2019-04-15 20:42 | disposition home or self-care (01) ==
LOC: ED 15:57
DX: K57.92 Diverticulitis of intestine, part unspecified, without perforation or abscess without bleeding (principal); I10 Essential (primary) hypertension; Z87.891 Personal history of nicotine dependence; Z88.2 Allergy status to sulfonamides; Z91.018 Allergy to other foods; Z79.899 Other long term (current) drug therapy
CPT/HCPCS: 80053; 81001; 83690; 84703; 85025; 96361; 96374; 96375; 99284-25; J0744; J1170; J2405; J2550; J7030

== ENCOUNTER 2020-02-10 11:25 | Emergency (ER) | payer BC, OTHER ==
[~2020-02-10] VITALS: Ht 154.9 cm; Wt 90.8 kg
--- OUTSIDE RECORDS SUMMARY | ~2020-02-10 | XMS | Encounter Summary ---
Demographics + + + | Address | [address] | | | [place] [address] | + + + | Home Phone | | + + + | Preferred Language | Unknown | + + + | Marital Status | | + + + | Taoist Affiliation | Unknown | + + + | Race | or | + + + | Ethnic Group | Not or | + + + Author + + + | Author | [place] [employer] [facility] | + + + | Organization | [facility] [employer] [facility] | + + + | Address | Unknown | + + + | Phone | Unavailable | + + + Support + + +---------+ + | Name | Relationship | Address | Phone | + + +---------+ + | Rosemarie Song | ECON | Unknown | | + + +---------+ + Care Team Providers + +------+ + | Care Cigarette Packing Machine Operator Name | Role | Phone | + +------+ + | Marcelle WillsP | PCP | | + +------+ + Encounter Details +--------+ + + + + | Date | Type | Department | Care Team | Description | +--------+ + + + + | 12/10/ | Procedure | [facility] | | | | 2019 | | [place] [facility] | | | | | | [place] at [facility] [address] | | | | | [address] [facility] | | | | | | for Heatl and | | | | | | Healing, [address], | | | | | | 11th Floor | | | | | | [place], [place] | | | | | | [address] | | | | | | [phone] | | | +--------+ + + + [...] as of this encounter Plan of Treatment Not on filedocumented as of this encounter Procedures + +--------+ [...] Performed At | + + + | Manager Combination | [facility] | | DocumentationRight EyeThreshold: [...] | + + + + + | [facility] | [address] | [place] [address] | | | INSTITUTE | [address] 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
--- OUTSIDE RECORDS SUMMARY | ~2020-02-10 | XMS | Encounter Summary ---
Demographics + + + | Address | [address] | | | [place] [address] | + + + | Home Phone | | + + + | Preferred Language | Unknown | + + + | Marital Status | | + + + | Shinto Affiliation | Unknown | + + + | Race | or | + + + | Ethnic Group | Not or | + + + Author + + + | Organization | Unknown | + + + | Address | Unknown | + + + | Phone | Unavailable | + + + Support + + +---------+ + | Name | Relationship | Address | Phone | + + +---------+ + | Rosemarie Song | ECON | Unknown | | + + +---------+ + Care Team Providers + +------+ + | Care Doll Wig Maker Rooted Hair Name | Role | Phone | + +------+ + | Marcelle Wills | PCP | | + +------+ + Encounter Details +--------+--------+ + + + | Date | Type | Department | Care Team | Description | +--------+--------+ + + + | 11/17/ | Travel | | | | | 2018 | | | | | +--------+--------+ + + + Social History + +-------+ [...] Not on filedocumented as of this encounter Visit Diagnoses Not on filedocumented in this encounter"
--- OUTSIDE RECORDS SUMMARY | ~2020-02-10 | XMS | Encounter Summary ---
Demographics + + + | Address | [address] | | | [place] [address] | + + + | Home Phone | | + + + | Preferred Language | Unknown | + + + | Marital Status | | + + + | Islam Affiliation | Unknown | + + + | Race | or | + + + | Ethnic Group | Not or | + + + Author + + + | Author | [place] [employer] [facility] | + + + | Organization | [facility] [employer] [facility] | + + + | Address | Unknown | + + + | Phone | Unavailable | + + + Support + + +---------+ + | Name | Relationship | Address | Phone | + + +---------+ + | Rosemarie Song | ECON | Unknown | | + + +---------+ + Care Team Providers + +------+ + | Care Engine Testing Supervisor Name | Role | Phone | + +------+ + | Marcelle Wills | PCP | | + +------+ + Reason for Visit + + + | Reason | Comments | + + + | Medication Refill | Cosopt and Brimonidine | | Request | | + + + Encounter Details +--------+ + + + + | Date | Type | Department | Care Team | Description | +--------+ + + + + | 07/23/ | Documentati | [facility] | Ankita Smith MD | Medication Refill | | 2020 | on | [facility] | [address] | Request (Cosopt and | | | | at [facility] [address] | [place], [place] | Brimonidine) | | | | Ave [facility] | [address] | | | | | Health and Healing, | [phone] | | | | | | | | | | | Floor [place], [place] | | | | | | [address] | | | | | | [phone] | | | +--------+ + + + [...]
--- OUTSIDE RECORDS SUMMARY | ~2020-02-10 | XMS | Encounter Summary ---
Demographics + + + | Address | [address] | | | [place] [address] | + + + | Home Phone | | + + + | Preferred Language | Unknown | + + + | Marital Status | | + + + | Roman Catholic Affiliation | Unknown | + + + | Race | or | + + + | Ethnic Group | Not or | + + + Author + + + | Author | [place] [employer] [facility] | + + + | Organization | [facility] [employer] [facility] | + + + | Address | Unknown | + + + | Phone | Unavailable | + + + Support + + +---------+ + | Name | Relationship | Address | Phone | + + +---------+ + | Rosemarie Song | ECON | Unknown | | + + +---------+ + Care Team Providers + +------+ + | Care Cloth Washer Operator Name | Role | Phone | + +------+ + | Marcelle WillsP | PCP | | + +------+ + Encounter Details +--------+ + + + + | Date | Type | Department | Care Team | Description | +--------+ + + + + | 04/15/ | Procedure | [facility] | Ankita Smith MD | | | 2019 | | [place] [facility] | [address] | | | | | [place] at [facility] [address] | [place], [place] | | | | | [address] [place] | [address] | | | | | for Heatl and | [phone] | | | | | [place] [address], | | | | | | [address] [facility] | | | | | | [place], [place] | | | | | | [address] | | | | | | [phone] | | | +--------+ + + + [...] + | AUTOMATED VISUAL | Routin | 04/15/2019 | Infantile or | Results for this | | FIELD, MYERS | e | 9:21 AM | juvenile glaucoma | procedure are in the | | | | PDT | | results section. | + +--------+ + + + documented in this encounter Results AUTOMATED VISUAL FIELD, MYERS (04/15/2019 9:21 AM PDT) + + + | Narrative | Performed At | + + + | Elocution Teacher | [facility] | | DocumentationRight EyeThreshold: 10-2 Strategy: JOANNE Reliability: | [facility] | | good MD: -21.09 PSD: 14.09 Left EyeThreshold: 10-2 | | | Strategy: JOANNE Reliability: good MD: -0.69 PSD: 1.51 | | | NotesVisual Field Interpretation ([facility] 04/15/2019)Myers 10-2 visual | | | fieldOD central island remaining, MD -21.09, baselineOS possible trac | | | inferior scotoma, MD -0.69, baseline | | | | | | | | |Left Eye | | |Threshold: 10-2 | | |Strategy: JOANNE | | |Reliability: good | | |MD: -0.69 | | |PSD: 1.51 | | | | | | | | |Notes | | |Visual Field Interpretation ([facility] 04/15/2019) | | |Myers 10-2 visual field | | |OD central island remaining, MD -21.09, baseline | | |OS possible trac inferior scotoma, MD -0.69, baseline | | | | | | | | | | | + + + + + + + + | Performing | Address | City/State/Zipcode | Phone Number | | Organization | | | | + + + + + | [facility] | [address] | [place] [address] | | | INSTITUTE | Bharath. 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
--- OUTSIDE RECORDS SUMMARY | ~2020-02-10 | XMS | Encounter Summary ---
Demographics + + + | Address | [address] | | | [place] [address] | + + + | Home Phone | | + + + | Preferred Language | Unknown | + + + | Marital Status | | + + + | Lutheran Affiliation | Unknown | + + + [...] Team Providers + +------+ + | Care Hedis Abstractor Name | Role | Phone | + +------+ + | Macrelle Wills | PCP | | + +------+ + Encounter Details +--------+--------+ + + + | Date | Type | Department | Care Team | Description | +--------+--------+ + + + | 12/10/ | Travel | | | | | 2019 | | | | | +--------+--------+ + [...]
--- OUTSIDE RECORDS SUMMARY | ~2020-02-10 | XMS | Clinical Summary ---
Demographics + + + | Address | [address] | | | [place] [address] | + + + | Home Phone | | + + + | Preferred Language | Unknown | + + + | Marital Status | | + + + | Moravian Affiliation | Unknown | + + + | Race | or | + + + | Ethnic Group | Not or | + + + Author + + + | Author | NON REVENUE LOCATIONS | + + + | Organization | NON REVENUE LOCATIONS | + + + | Address | Unknown | + + + | Phone | Unavailable | + + + Support + + +---------+ + | Name | Relationship | Address | Phone | + + +---------+ + | Rosemarie Song | ECON | Unknown | | + + +---------+ + Care Team Providers + +------+ + | Care Merchandising Execution Manager Name | Role | Phone | + +------+ + | Marcelle Wills CHRISTIAN SCIENCE PRACTITIONER | PCP | | + +------+ + Source Comments [facility] is fully live on both [facility] and [facility] Allergies No Known Allergies Medications + + + +---------+------+------+-------+ | Medication | Sig | Dispensed | Refills | Star | End | Statu | | | | | | t | Date | s | | | | | | Date | | | + + + +---------+------+------+-------+ | aspirin EC 81 mg | Take 81 mg by mouth | | 0 | | | Activ | | oral tablet,delayed | once daily. | | | | | e | | release (DR/EC) | | | | | | | + + + +---------+------+------+-------+ | hydrALAZINE 25 mg | Take 25 mg by mouth | | 0 | | | Activ | | oral tablet | four times daily. | | | | | e | + + + +---------+------+------+-------+ | losartan 50 mg | Take 50 mg by mouth | | 0 | | | Activ | | oral tablet | once daily. | | | | | e | + + + +---------+------+------+-------+ | buPROPion 75 mg | Take 75 mg by mouth | | 0 | | | Activ | | oral tablet | three times daily. | | | | | e | + + + +---------+------+------+-------+ | liraglutide | Inject under the | | 0 | | | Activ | | (VICTOZA 2-ANA MARIA SUBQ) | skin (SUBC). | | | | | e | + + + +---------+------+------+-------+ | dorzolamide | Instill 1 drop into | 10 mL | 6 | 05/2 | | Activ | | HCl-timolol maleate | both eyes two times | | | 0/20 | | e | | (COSOPT) 2-0.5% | daily. Indications: | | | 19 | | | | ophthalmic (eye) | wide-angle glaucoma | | | | | | | dropsIndications: | | | | | | | | open angle glaucoma | | | | | | | + + + +---------+------+------+-------+ | brimonidine 0.2 % | Instill 1 drop into | 15 mL | 5 | 07/0 | | Activ | | ophthalmic (eye) | both eyes three | | | 8/20 | | e | | drops | times daily. | | | 19 | | | + + + +---------+------+------+-------+ | | Take 1 tablet by | | 0 | 05/1 | | Activ | | HYDROCHLOROTHIAZIDE | mouth. | | | 6/20 | | e | | ORAL | | | | 19 | | | + + + +---------+------+------+-------+ | latanoprost 0.005 | Instill 1 drop into | 2.5 mL | 6 | 07/02 | | Activ | | % ophthalmic (eye) | both eyes once daily | | | 03/20 | | e | | dropsIndications: | at bedtime. | | | 20 | | | | open angle glaucoma | Indications: | | | | | | | | wide-angle glaucoma | | | | | | + + + +---------+------+------+-------+ Active Problems + + + | Problem | Noted Date | + + + | Infantile or juvenile glaucoma | 12/10/2018 | + + + + + | Overview: Glaucoma Summary:Co-managed with: | | Aurelia, will see him for IOP checks and us for imaging and | | testingGonio:Tmax: OD: 57 OS: 40CCT: 537/564Drop | | Allergies/Intolerances: STUDIES: Visual Field Interpretation | | ([facility] 12/10/2018)Myers 24-2 visual fieldOD central island, MD | | -29.14, baselineOS inf>sup arcs, MD -3.10, baselineVisual Field | | Interpretation ([facility] 04/15/2019)Myers 10-2 visual fieldOD | | central island remaining, MD -21.09, baselineOS possible trac | | inferior scotoma, MD -0.69, baseline OCT interpretation | | (12/10/2018)Type: Spectralis OD diffuse thinning and | | schisis, average RNFL thickness 49 um, baselineOS | | inferior>superior thinnin, average RNFL thickness 77 um, | | baseline Last Assessment & Plan: NOEMÍ indeterminate stage. | | - IOP stable in low teens on MTMT- would like IOP <15 mmHg | | initially- OCT confirms diffuse thinning OD, unknown if schesis | | playing into things- [facility] 24-2 with progression since 2010, but | | patient untreated with IOP in 30-40's until she met | | Aurelia, so IOP now may be OK to stabilize duenas. - 10-2 | | today matches 24-2. - cont MMT OU- will cont. To watch very | | closely. - Preservative free artificial tears, gels, and | | ointments Presbyopia, both eyes- Noticing issues with near | | vision- Symptoms consistent with early presbyopia- Likely not | | related to topical glaucoma meds- to optDr. Wanda evans for further | | glasses | | | | Last Assessment & Plan: JOAG, indeterminate stage. | |- IOP stable in low teens on MTMT | |- would like IOP <15 mmHg initially | |- OCT confirms diffuse thinning OD, unknown if schesis playing into things | |- HVF 24-2 with progression since 2010, but patient untreated with IOP in 30-40's until she met Dr. Moses, so IOP now may be OK to stabilize duenas. | |- 10-2 today matches 24-2. | |- cont MMT OU | |- will cont. To watch very closely. | |- Preservative free artificial tears, gels, and ointments | | | |Presbyopia, both eyes | |- Noticing issues with near vision | |- Symptoms consistent with early presbyopia | |- Likely not related to topical glaucoma meds | |- to optDr. Wanda evans for further glasses | + + Family History + + +------+ + | Medical History | Relation | Name | Comments | + + +------+ + | Diabetes type II | Mother | | | + + +------+ + | Hypertension | Mother | | | + + [...] | + + Last Filed Vital Signs Not on file Plan of Treatment + + + + + | Health Maintenance | Due Date | Last Done | Comments | + + + + + | Influenza (Flu) | | 06/06/2012 | | | vaccination (Season | 0 | | | | Ended) | | | | + + + + + | Pneumococcal | Aged Out | 06/06/2012 | No longer eligible | | vaccination | | | based on patient's | | | | | age to complete this | | | | | topic | + + + + + Results Not on filefrom Last 3 Months Insurance + +--------+ +--------+ + +--------+ | Payer | Benefi | Subscriber | Effect | Phone | Address | Type | | | t Plan | ID | luz maria | | | | | | / | | Dates | | | | | | Group | | | | | | + +--------+ +--------+ + +--------+ | [place] | BLUE | [phone] | 08/30/19 | [phone] | [address] | PPO | | | CROSS | | 19-Pre | 8 | [id number] | | | | [place] | | sent | | [place], | | | | [place] | | | | [place] [address] | | + +--------+ +--------+ + +--------+ | HEALTH | | [phone] | Effect | | | Agency | | SERVICE | | | luz maria | | | | | | HEALTH | | for | | | | | | | | all | | | | | | SERVIC | | dates | | | | | | E | | | | | | + +--------+ +--------+ + +--------+ + +--------+ +--------+ + + | Guarantor Name | Accoun | Relation to | Date | Phone | Billing Address | | | t Type | Patient | of | | | | | | | | | | + +--------+ +--------+ + + | Aliza Decker | Person | Self | [birth year] | [address] | | | al/Fam | | 1976 | [phone] | [place] | | | [place]han | | | [address] (Home) | [phone] | + +--------+ +--------+ + + | Aliza Decker | Vision | Self | | | [address] | | | | | | [phone] | [place], [place] | | | | | | [address] (Home) | [address] | + +--------+ +--------+ + +"
--- OUTSIDE RECORDS SUMMARY | ~2020-02-10 | XMS | Encounter Summary ---
Demographics + + + | Address | [address] | | | [place] [address] | + + + | Home Phone | | + + + | Preferred Language | Unknown | + + + | Marital Status | | + + + | Gnosticist Affiliation | Unknown | + + + | Race | or | + + + | Ethnic Group | Not or | + + + Author + + + | Author | [place] [email or web address] [facility] | + + + | Organization | [facility] [employer] [facility] | + + + | Address | Unknown | + + + | Phone | Unavailable | + + + Support + + +---------+ + | Name | Relationship | Address | Phone | + + +---------+ + | Rosemarie Song | ECON | Unknown | | + + +---------+ + Care Team Providers + +------+ + | Care Manager Pacu Name | Role | Phone | + +------+ + | Marcelle WillsP | PCP | | + +------+ + Encounter Details +--------+ + + + + | Date | Type | Department | Care Team | Description | +--------+ + + + + | 04/15/ | Procedure | [facility] | Ankita Smith MD | | | 2019 | | [facility] | [address] | | | | | [place] at [facility] [address] | [place], [place] | | | | | [address] [place] | [address] | | | | | for Heatl and | [phone] | | | | | [place] [address], | | | | | | [address] [facility] | | | | | | [place], [place] | | | | | | [address] | | | | | | [phone] | | | +--------+ + + + [...] Performed At | + + + | Heritage Consultant | [facility] | | DocumentationRight EyeThreshold: 10-2 Strategy: JOANNE Reliability: | [facility] | | good MD: -21.09 PSD: 14.09 Left EyeThreshold: 10-2 | | | Strategy: JOANNE Reliability: good MD: -0.69 PSD: 1.51 | | | NotesVisual Field Interpretation ([facility] 04/15/2019)Myers 10-2 visual | | | [...] | |Notes | | |Visual Field Interpretation ([facility] 04/15/2019) | | |Myers 10-2 visual [...] [facility] | [address] | [place] [address] | | | INSTITUTE | Bharath. 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
--- OUTSIDE RECORDS SUMMARY | ~2020-02-10 | XMS | Encounter Summary ---
Demographics + + + | Address | [address] | | | [place] [address] | + + + | Home Phone | | + + + | Preferred Language | Unknown | + + + | Marital Status | | + + + | Spiritism Affiliation | Unknown | + + + | Race | or | + + + | Ethnic Group | Not or | + + + Author + + + | Author | [place] [employer] [facility] | + + + | Organization | [facility] [employer] [facility] | + + + | Address | Unknown | + + + | Phone | Unavailable | + + + Support + + +---------+ + | Name | Relationship | Address | Phone | + + +---------+ + | Rosemarie Song | ECON | Unknown | | + + +---------+ + Care Team Providers + +------+ + | Care Pantry Chef Name | Role | Phone | + +------+ + | Marcelle Wills | PCP | | + +------+ + Reason for Visit + + + | Reason | Comments | + + + | Follow-up visit | | + + + | Juvenile glaucoma | | + + + Office Visit [...] [address] | | | | | | [address] | | | | | | [address] | [place], [place] | | | | | | [address] | [address] | | | | | | [place], | Phone: | | | | | | [place] [address] | [phone] | | | | | | Phone: | Fax: | | | | | | [phone] | [phone] | | | | | | Fax: | | | | | | | [phone] | | +--------+--------+ + + + + Encounter Details +--------+---------+ + + + | Date | Type | Department | Care Team | Description | +--------+---------+ + + + | 12/10/ | Office | [facility] | Ankita Smith MD | Infantile or | | 2019 | Visit | [facility] | [address] | juvenile glaucoma | | | | at [facility] [address] | [facility] [place] | (Primary Dx) | | | | Ave | [address] | | | | | Health and Healing, | [phone] | | | | | [facility] | | | | | | Floor [facility] [place] | | | | | | [address] | | | | | | [phone] | | | +--------+---------+ + + + [...] encounter Progress Notes Ankita Smith MD - 12/10/2018 10:30 AM PDT Returning Patient: 12/10/2018 Chief Complaint/HPI: Aliza Decker is a 43 y.o. female here today with and 2 child subhash 3 week follow up with HVF and OCT - Vision about the same. Light sensitive. Can't see well close up with glasses, but then can't see far away without them. Was hard to focus on the HVF test - focusing is difficult and has to work at it constantly. Using Dorzolamide/Timolo l now - stings a lot, feels like for a long time - but tolerating for now. Eye pain 3-4/10 O D, 1-2 OS - can feel the pressure around the right eye. Eye meds: Dorzolamide/Timolol BID OU - 5:00AM Brimonidine 0.2% TID OU - 5:10AM Latanoprost 0.005% QHS OU - 9:30PM AT PRN Marijuana smoking - 1-3x weekly - few weeks ago ICLINTON, performed and reviewed the above history, medications, allergies, as well as performed elements noted in the Base Ophthalmology Exam. VA done by HVF tech. POHx and Sx: NOEMÍ (Dx'd ~36 yo) Glaucoma Summary: Gonio: Tmax: OD: 57 OS: 40 CCT: 537/564 Drop Allergies/Intolerances: STUDIES: Visual Field Interpretation ([facility] 12/10/2018) Myers 24-2 visual field OD central island, MD -29.14, baseline OS inf>sup arcs, MD -3.10, baseline OCT interpretation (12/10/2018) Type: Spectralis OD diffuse thinning and schisis, average RNFL thickness 49 um, baseline OS inferior>superior thinnin, average RNFL thickness 77 um, baseline Assessment/Plan: Aliza Decker is a 43 y.o. female with: JOAG, indeterminate stage. - IOP slightly increased, now low teens on MTMT - would like IOP <15 mmHg initially - OCT confirms diffuse thinning OD, - HVF today very advanced OD, needs 10-2 -- unsure if getting worse. - cont MMT OU - Preservative free artificial tears, gels, and ointments - Dr. Robertson at [facility] has duenas Presbyopia, both eyes - Noticing issues with near vision - Symptoms consistent with early presbyopia - Likely not related to topical glaucoma meds - Discussed taking off glasses to read, use of OTC readers, or new MRx for bifocals with op tanisha Follow up: No follow-ups on file. Attestations: The automotive paint technician, under my supervision, is responsible for performing the following sections: RFV, ROS, PMH, PSH, SocHx, FH, Med list, Base Ophth Exam. I have reviewed and edited history and automotive paint technician documentation, and performed all elements to above examination documentation. Ankita Smith MD Warehouse Supervisor 3Rd Shift of Ophthalmology Department of Glaucoma [facility] FURTHER HISTORY: Family history of glaucoma? No known History of eye trauma? No Asthma/COPD? Yes - asthma with allergies Hypotension/Shock history? No Migraines/Raynauds? Yes - rare migraine Steroid use? Yes- in the past post surgery Kidney stones? No Driving? Yes, day only/rarely at night Contact lens wear? Yes, soft lenses/rarely Flomax use? Never Occupation: [employer] Past Medical History: Diagnosis Date Asthma due [...] she has current or past drug history. AUTOMATED VISUAL FIELD, MYERS (Both Eyes, 24-2, Undilated) [[id number]] Air Conditioning Service Technician Documentation Right Eye Threshold: 24-2 Strategy: JOANNE Reliability: good MD: -29.14 PSD: 8.68 Left Eye Threshold: 24-2 Strategy: JOANNE Reliability: good MD: -3.1 PSD: 2.52 EXAM: Not recorded Mojgan Zee 10:30 AM Mojgan MORALES COT, performed, elements noted in the Base Ophthalm ology Exam, visual acuity, HVF. documented in this enc ounter Plan of Treatment Not on filedocumented as of this encounter Procedures + +--------+ + + + | Procedure Name | Priori | Date/Time | Associated Diagnosis | Comments | | | ty | | | | + +--------+ + + + | OCT, OPTIC NERVE | Routin | 12/10/2018 | Infantile or | Results for this | | | e | 10:39 AM | juvenile glaucoma | procedure are in the | | | | PDT | | results section. | + +--------+ + + + documented in this encounter Results OCT, OPTIC NERVE (12/10/2018 10:39 AM PDT) + + + | Narrative | Performed At | + + + | Provider | [facility] | | DocumentationRight EyeTemporal thickness: borderline Supeior | [facility] | | thickness: abnormal Nasal thickness: abnormal Inferior thickness: | | | abnormal Global thickness: abnormal Global thickness measurement: 49 | | | Impression: baseline Left EyeTemporal thickness: normal Supeior | | | thickness: borderline Nasal thickness: borderline Inferior thickness: | | | abnormal Global thickness: abnormal Global thickness measurement: 77 | | | Impression: baseline NotesOCT interpretation (12/10/2018)Type: | | | Spectralis OD diffuse thinning and schisis, average RNFL | | | thickness 49 um, baselineOS inferior>superior thinnin, average RNFL | | | thickness 77 um, baseline | | |Left Eye | | |Temporal thickness: normal | | |Supeior thickness: borderline | | |Nasal thickness: borderline | | |Inferior thickness: abnormal | | |Global thickness: abnormal | | |Global thickness measurement: 77 | | |Impression: baseline | | | | | | | | |Notes | | |OCT interpretation (12/10/2018) | | |Type: Spectralis | | |OD diffuse thinning and schisis, average RNFL thickness 49 um, baseline | | |OS inferior>superior thinnin, average RNFL thickness 77 um, baseline | | | | | + + + + + + + + | Performing | Address | City/State/Zipcode | Phone Number | | Organization | | | | + + + + + | [facility] | [address] | [place] [address] | | | INSTITUTE | Bharath. 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
--- OUTSIDE RECORDS SUMMARY | ~2020-02-10 | XMS | Encounter Summary ---
Demographics + + + | Address | [address] | | | [place] [address] | + + + | Home Phone | | + + + | Preferred Language | Unknown | + + + | Marital Status | | + + + | Caodaism Affiliation | Unknown | + + + | Race | or | + + + | Ethnic Group | Not or | + + + Author + + + | Author | [place] [employer] [facility] | + + + | Organization | [facility] [employer] [facility] | + + + | Address | Unknown | + + + | Phone | Unavailable | + + + Support + + +---------+ + | Name | Relationship | Address | Phone | + + +---------+ + | Rosemarie Song | ECON | Unknown | | + + +---------+ + Care Team Providers + +------+ + | Care Powdered Metal Supervisor Name | Role | Phone | [...] + + | 04/15/ | Office | [facility] | Dahlia Daniels MD | Infantile or | | 2019 | Visit | [facility] | [address] | juvenile glaucoma | | | | at [address] | [place], [place] | (Primary Dx) | | | | Ave [facility] | [address] | | | | | Health and Healing, | [phone] | | | | | | | | | | | Floor [place], [place] | | | | | | [address] | | | | | | [phone] | | | +--------+---------+ + + + [...] the Base Ophthalmology Exam, visual acuity, HVF. [facility] Progress Note 04/15/2019 PROBLEM-SPECIFIC ASSESSMENT & PLAN NOTES FOR CURRENT ENCOUNTER Infantile or juvenile glaucoma Overview Note: Overview note Last Updated 04/15/2019) Office Visit Written 04/15/2019 by Luzmaria [facility] Summary: Co-managed with: Dr. Moses, will see him for IOP checks and us for imaging and татьяна rajan Gonio: Tmax: OD: 57 OS: 40 CCT: 537/564 Drop Allergies/Intolerances: STUDIES: Visual Field Interpretation ([facility] 12/10/2018) Myers 24-2 visual field OD central island, MD -29.14, baseline OS inf>sup arcs, MD -3.10, baseline Visual Field Interpretation ([facility] 04/15/2019) Myers 10-2 visual field OD central [...] patient untreated with IOP in 30-40's until sh e met Dr. Moses, so IOP now may be OK to stabilize duenas. - 10-2 today matches 24-2. - cont MMT OU [...] Soc Hx Examination: See Ophthalmology Module The facilities technician, under the supervision of the physician, is responsible for performing the f ollowing sections: RFV, ROS, PMH, PSH, SocHx, FH, Med list, Base Ophth Exam. The attending physician is responsible for the entire content of the note and has personall y performed the HPI and the physical examination DAHLIA DANIELS MD documented in this enco unter Plan of Treatment Not on filedocumented as of this encounter Visit Diagnoses + + | Diagnosis | + + | 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
--- OUTSIDE RECORDS SUMMARY | ~2020-02-10 | XMS | Encounter Summary ---
Demographics + + + | Address | [address] | | | [place] [address] | + + + | Home Phone | | + + + | Preferred Language | Unknown | + + + | Marital Status | | + + + | Christian Affiliation | Unknown | + + + | Race | or | + + + | Ethnic Group | Not or | + + + Author + + + | Author | [place] [employer] [facility] | + + + | Organization | [facility] [employer] [facility] | + + + | Address | Unknown | + + + | Phone | Unavailable | + + + Support + + +---------+ + | Name | Relationship | Address | Phone | + + +---------+ + | Rosemarie Song | ECON | Unknown | | + + +---------+ + Care Team Providers + +------+ + | Care Vault Person Name | Role | Phone | + [...] Care Questions | | 2019 | | [facility] | [address] | | | | | at [facility] [address] | [place], [place] | | | | | Ave [facility] | [address] | | | | | Health and Healing, | [phone] | | | | | [facility] | | | | | | Floor [place], [place] | | | | | | [address] | | | | | | [phone] | | | +--------+ + + + [...]
--- OUTSIDE RECORDS SUMMARY | ~2020-02-10 | XMS | Encounter Summary ---
Demographics + + + | Address | [address] | | | [place] [address] | + + + | Home Phone | | + + + | Preferred Language | Unknown | + + + | Marital Status | | + + + | Buddhism Affiliation | Unknown | + + + | Race | or | + + + | Ethnic Group | Not or | + + + Author + + + | Author | [place] [facility] [facility] | + + + | Organization | [facility] [facility] | + + + | Address | Unknown | + + + | Phone | Unavailable | + + + Support + + +---------+ + | Name | Relationship | Address | Phone | + + +---------+ + | Rosemarie Song | ECON | Unknown | | + + +---------+ + Care Team Providers + +------+ + | Care Host/Hostess Name | Role | Phone | + [...] [address] | | | | | [address] [address] | | | | | | [address] | [place], [place] | | | | | | [address] | [address] | | | | | | [place], | Phone: | | | | | | [place] [address] | [phone] | | | | | | Phone: | Fax: | | | | | | [phone] | [phone] | | | | | | Fax: | | | | | | | [phone] | | +--------+--------+ + + + + Encounter Details +--------+---------+ + + + | Date | Type | Department | Care Team | Description | +--------+---------+ + + + | 11/17/ | Office | [facility] | Ankita Smith MD | Infantile or | | 2019 | Visit | [facility] | [address] | juvenile glaucoma | | | | at [address] | [place], [place] | (Primary Dx) | | | | Ave [facility] | [address] | | | | | Health and Healing, | [phone] | | | | | | | | | | | Floor [place], [place] | | | | | | [address] | | | | | | [phone] | | | +--------+---------+ + + + [...] documented as of this encounter Progress Notes IngAnkita MD - 11/17/2018 1:40 PM PDT Returning [...] AT rarely Marijuana smoking - 1-3x weekly ISwetha, performed and reviewed the above history, medications, allergies, as wel l as performed elements noted in the Base Ophthalmology Exam. POHx and Sx: JOAG (Dx'd ~36 yo) Glaucoma Summary: Gonio: Tmax: [...] 12/08/2018) for w/HVF 24-2, w/RNFL. Attestations: The actuarial technician, under my supervision, is responsible for performing the following sections: RFV, ROS, PMH, PSH, SocHx, FH, Med list, Base Ophth Exam. I have reviewed and edited history and actuarial technician documentation, and performed all elements to above examination documentation. Ankita Smith MD Turn Operator of Ophthalmology Department of Glaucoma [facility] [place] FURTHER HISTORY: Past Medical History: Diagnosis Date [...] Yes, soft lenses/rarely Flomax use? 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
--- OUTSIDE RECORDS SUMMARY | ~2020-02-10 | XMS | Encounter Summary ---
Demographics + + + | Address | [address] | | | [place] [address] | + + + | Home Phone | | + + + | Preferred Language | Unknown | + + + | Marital Status | | + + + | Anabaptist Affiliation | Unknown | + + + | Race | or | + + + | Ethnic Group | Not or | + + + Author + + + | Author | [place] [employer] [facility] | + + + | Organization | [facility] [employer] [facility] | + + + | Address | Unknown | + + + | Phone | Unavailable | + + + Support + + +---------+ + | Name | Relationship | Address | Phone | + + +---------+ + | Rosemarie Song | ECON | Unknown | | + + +---------+ + Care Team Providers + +------+ + | Care Programmer Developer Name | Role | Phone | + +------+ + | Marcelle Wills | PCP | | + +------+ + Reason for Visit + + + | Reason | Comments | + + + | Medication Refill | Latanoprost | | Request | | + + + Encounter Details +--------+--------+ + + + | Date | Type | Department | Care Team | Description | +--------+--------+ + + + | 07/29/ | Refill | [facility] | Ankita Smith MD | Medication Refill | | 2020 | | [facility] | [address] | Request (Latanoprost | | | | at [facility] [address] | [place], [place] | ) | | | | Ave | [address] | | | | | Health and [facility], | [phone] | | | | | [facility] | | | | | | Floor [place], [place] | | | | | | [address] | | | | | | [phone] | | | +--------+--------+ + + + [...]
--- OUTSIDE RECORDS SUMMARY | ~2020-02-10 | XMS | Encounter Summary ---
Demographics + + + | Address | [address] [place] [address] | | | [place] [address] | + + + | Home Phone [...] Team Providers + +------+ + | Care Job Foreman Name | Role | Phone | + +------+ + | Marcelle Wills | PCP | | + +------+ + Encounter Details +--------+--------+ + + + | Date | Type | Department | Care Team | Description | +--------+--------+ + + + | 04/15/ | Travel | | | | | [...]
--- OUTSIDE RECORDS SUMMARY | ~2020-02-10 | XMS | Encounter Summary ---
Demographics + + + | Address | [address] | | | [place] [address] | + + + | Home Phone | | + + + | Preferred Language | Unknown | + + + | Marital Status | | + + + | Evangelical Affiliation | Unknown | + + + [...] Team Providers + +------+ + | Care Cognos Administrator Name | Role | Phone | [...]
--- OUTSIDE RECORDS SUMMARY | ~2020-02-10 | XMS | Encounter Summary ---
Demographics + + + | Address | [address] | | | [place] [address] | + + + | Home Phone [...] Team Providers + +------+ + | Care Section Crews Activities Clerk Name | Role | Phone | + [...]
--- OUTSIDE RECORDS SUMMARY | ~2020-02-10 | XMS | Encounter Summary ---
Demographics + + + | Address | [address] | | | [place] [address] | + + + | Home Phone | | + + + | Preferred Language | Unknown | + + + | Marital Status | | + + + | Mosque Affiliation | Unknown | + + + | Race | or | + + + | Ethnic Group | Not or | + + + Author + + + | Author | [place] [employer] [facility] | + + + | Organization | [facility] [employer] [facility] | + + + | Address | Unknown | + + + | Phone | Unavailable | + + + Support + + +---------+ + | Name | Relationship | Address | Phone | + + +---------+ + | Rosemarie Song | ECON | Unknown | | + + +---------+ + Care Team Providers + +------+ + | Care Dialysis Chief Equipment Technician Name | Role | Phone | [...] Medication Refill | | 2020 | | [facility] | [address] | Request (Latanoprost | | | | at [facility] [address] | [place], [place] | ) | | | | Ave [facility] | [address] | | | | | Health and [facility], | [phone] | | | | | [facility] | | | | | | Floor [place], [place] | | | | | | [address] | | | | | | [phone] | | | +--------+--------+ + + + [...]
--- OUTSIDE RECORDS SUMMARY | ~2020-02-10 | XMS | Encounter Summary ---
Demographics + + + | Address | [address] | | | [place] [address] | + + + | Home Phone | | + + + | Preferred Language | Unknown | + + + | Marital Status | | + + + | Buddhist Affiliation | Unknown | + + + | Race | or | + + + | Ethnic Group | Not or | + + + Author + + + | Author | [place] [employer] [facility] | + + + | Organization | [facility] [employer] [facility] | + + + | Address | Unknown | + + + | Phone | Unavailable | + + + Support + + +---------+ + | Name | Relationship | Address | Phone | + + +---------+ + | Rosemarie Song | ECON | Unknown | | + + +---------+ + Care Team Providers + +------+ + | Care Senior Software Project Manager Name | Role | Phone | [...] Care Questions | | 2019 | | [facility] | [address] | | | | | at [facility] [address] | [place], [place] | | | | | Ave [facility] | [address] | | | | | Health and Healing, | [phone] | | | | | [facility] | | | | | | Floor [place], [place] | | | | | | [address] | | | | | | [phone] | | | +--------+ + + + [...]
--- OUTSIDE RECORDS SUMMARY | ~2020-02-10 | XMS | Encounter Summary ---
Demographics + + + | Address | [address] | | | [place] [address] | + + + | Home Phone | | + + + | Preferred Language | Unknown | + + + | Marital Status | | + + + | Buddhist Affiliation | Unknown | + + + | Race | or | + + + | Ethnic Group | Not or | + + + Author + + + | Author | [place] [facility] | + + + | Organization | [facility] | + + + | Address | Unknown | + + + | Phone | Unavailable | + + + Support + + +---------+ + | Name | Relationship | Address | Phone | + + +---------+ + | Rosemarie Song | ECON | Unknown | | + + +---------+ + Care Team Providers + +------+ + | Care Topline Beading Machine Tender Name | Role | Phone | + [...] Refill | | 2020 | on | [facility] | [address] | Request (Cosopt and | | | | at [facility] [address] | [place], [place] | Brimonidine) | | | | Ave [facility] | [address] | | | | | Health and Healing, | [phone] | | | | | | | | | | | Floor [place], [place] | | | | | | [address] | | | | | | [phone] | | | +--------+ + + + [...]
--- OUTSIDE RECORDS SUMMARY | ~2020-02-10 | XMS | Encounter Summary ---
Demographics + + + | Address | [address] | | | [place] [address] | + + + | Home Phone | | + + + | Preferred Language | Unknown | + + + | Marital Status | | + + + | Synagogue Affiliation | Unknown | + + + | Race | or | + + + | Ethnic Group | Not or | + + + Author + + + | Author | [place] [facility] [facility] | + + + | Organization | [facility] [employer] [facility] | + + + | Address | Unknown | + + + | Phone | Unavailable | + + + Support + + +---------+ + | Name | Relationship | Address | Phone | + + +---------+ + | Rosemarie Song | ECON | Unknown | | + + +---------+ + Care Team Providers + +------+ + | Care Gill Tender Name | Role | Phone | + +------+ + | Marcelle WillsP | PCP | | + +------+ + Encounter Details +--------+ + + + + | Date | Type | Department | Care Team | Description | +--------+ + + + + | 12/10/ | Procedure | [facility] | | | | 2019 | | [facility] | | | | | | [place] at [facility] [address] | | | | | [address] [facility] | | | | | | for Heatl and | | | | | | Healing, [address], | | | | | | 11th Floor | | | | | | [place], [place] | | | | | | [address] | | | | | | [phone] | | | +--------+ + + + [...] Performed At | + + + | Environmental Designer | [facility] | | DocumentationRight EyeThreshold: [...] + + | [facility] | [address] | [place] [address] | | | INSTITUTE | [address] 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
--- OUTSIDE RECORDS SUMMARY | ~2020-02-10 | XMS | Encounter Summary ---
Demographics + + + | Address | [address] | | | [place] [address] | + + + | Home Phone | | + + + | Preferred Language | Unknown | + + + | Marital Status | | + + + | Mandaeism Affiliation | Unknown | + + + | Race | or | + + + | Ethnic Group | Not or | + + + Author + + + | Author | [place] [employer] [facility] | + + + | Organization | [facility] [employer] [facility] | + + + | Address | Unknown | + + + | Phone | Unavailable | + + + Support + + +---------+ + | Name | Relationship | Address | Phone | + + +---------+ + | Rosemarie Song | ECON | Unknown | | + + +---------+ + Care Team Providers + +------+ + | Care Network Support Engineer Name | Role | Phone | + [...] Refill Request | | 2019 | | [facility] | [address] | (Brimonidine 0.2%) | | | | at [facility] [address] | [place], [place] | | | | | Ave [facility] | [address] | | | | | Health and Healing, | [phone] | | | | | [facility] | | | | | | Floor [place], [place] | | | | | | [address] | | | | | | [phone] | | | +--------+--------+ + + + [...]
--- OUTSIDE RECORDS SUMMARY | ~2020-02-10 | XMS | Encounter Summary ---
Demographics + + + | Address | [address] | | | [place] [address] | + + + | Home Phone | | + + + | Preferred Language | Unknown | + + + | Marital Status | | + + + | Cheondoism Affiliation | Unknown | + + + | Race | or | + + + | Ethnic Group | Not or | + + + Author + + + | Author | [place] [employer] [facility] | + + + | Organization | [facility] [employer] [facility] | + + + | Address | Unknown | + + + | Phone | Unavailable | + + + Support + + +---------+ + | Name | Relationship | Address | Phone | + + +---------+ + | Rosemarie Song | ECON | Unknown | | + + +---------+ + Care Team Providers + +------+ + | Care Transportation Maintenance Operator Name | Role | Phone | [...] [address] | | | | | [address] [address] | | | | | | [address] | [place], [place] | | | | | | [address] | [address] | | | | | | [place], | Phone: | | | | | | [place] [address] | [phone] | | | | | | Phone: | Fax: | | | | | | [phone] | [phone] | | | | | | Fax: | | | | | | | [phone] | | +--------+--------+ + + + + Encounter Details +--------+---------+ + + + | Date | Type | Department | Care Team | Description | +--------+---------+ + + + | 12/10/ | Office | [facility] | Ankita Smith MD | Infantile or | | 2019 | Visit | [facility] | [address] | juvenile glaucoma | | | | at [facility] [address] | [facility] [place] | (Primary Dx) | | | | Ave [facility] | [address] | | | | | Health and Healing, | [phone] | | | | | [facility] | | | | | | Floor [facility] [place] | | | | | | [address] | | | | | | [phone] | | | +--------+---------+ + + + [...] 537/564 Drop Allergies/Intolerances: STUDIES: Visual Field Interpretation ([facility] 12/10/2018) Myers 24-2 visual field OD [...] ointments - Dr. Robertson at [facility] has duenas Presbyopia, both eyes - Noticing issues with near vision - Symptoms consistent with early presbyopia - Likely not related to topical glaucoma meds - Discussed taking off glasses to read, use of OTC readers, or new MRx for bifocals with op tanisha Follow up: No follow-ups on file. Attestations: The build technician, under my supervision, is responsible for performing the following sections: RFV, ROS, PMH, PSH, SocHx, FH, Med list, Base Ophth Exam. I have reviewed and edited history and build technician documentation, and performed all elements to above examination documentation. Ankita Smith MD Form Presser of Ophthalmology Department of Glaucoma [facility] [place] FURTHER HISTORY: Family history of glaucoma? No known History of eye trauma? No Asthma/COPD? Yes - asthma with allergies Hypotension/Shock history? No Migraines/Raynauds? Yes - rare migraine Steroid use? Yes- in the past post surgery Kidney stones? No Driving? Yes, day only/rarely at night Contact lens wear? Yes, soft lenses/rarely Flomax use? 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
--- OUTSIDE RECORDS SUMMARY | ~2020-02-10 | XMS | Encounter Summary ---
Demographics + + + | Address | [address] | | | [place] [address] | + + + | Home Phone | | + + + | Preferred Language | Unknown | + + + | Marital Status | | + + + | Hindu Affiliation | Unknown | + + + | Race | or | + + + | Ethnic Group | Not or | + + + Author + + + | Author | [place] [employer] [facility] | + + + | Organization | [facility] [employer] [facility] | + + + | Address | Unknown | + + + | Phone | Unavailable | + + + Support + + +---------+ + | Name | Relationship | Address | Phone | + + +---------+ + | Rosemarie Song | ECON | Unknown | | + + +---------+ + Care Team Providers + +------+ + | Care Cleaner Signs Name | Role | Phone | + +------+ + | Marcelle Wlils | PCP | | + +------+ + [...] Refill Request | | 2019 | | [facility] | [address] | (Brimonidine 0.2%) | | | | at [facility] [address] | [place], [place] | | | | | Ave [facility] | [address] | | | | | Health and Healing, | [phone] | | | | | [facility] | | | | | | Floor [place], [place] | | | | | | [address] | | | | | | [phone] | | | +--------+--------+ + + + [...]
--- OUTSIDE RECORDS SUMMARY | ~2020-02-10 | XMS | Encounter Summary ---
Demographics + + + | Address | [address] | | | [place] [address] | + + + | Home Phone | | + + + | Preferred Language | Unknown | + + + | Marital Status | | + + + | Latter Day Affiliation | Unknown | + + + | Race | or | + + + | Ethnic Group | Not or | + + + Author + + + | Author | [place] [employer] [facility] | + + + | Organization | [facility] [employer] [facility] | + + + | Address | Unknown | + + + | Phone | Unavailable | + + + Support + + +---------+ + | Name | Relationship | Address | Phone | + + +---------+ + | Rosemarie Song | ECON | Unknown | | + + +---------+ + Care Team Providers + +------+ + | Care Underwriting Clerk Name | Role | Phone | [...] [address] | | | | | [address] [address] | | | | | | [address] | [place], [place] | | | | | | [address] | [address] | | | | | | [place], | Phone: | | | | | | [place] [address] | [phone] | | | | | | Phone: | Fax: | | | | | | [phone] | [phone] | | | | | | Fax: | | | | | | | [phone] | | +--------+--------+ + + + + Encounter Details +--------+---------+ + + + | Date | Type | Department | Care Team | Description | +--------+---------+ + + + | 11/17/ | Office | [facility] | Ankita Smith MD | Infantile or | | 2019 | Visit | [facility] | [address] | juvenile glaucoma | | | | at H [address] | [place], [place] | (Primary Dx) | | | | Ave [facility] | [address] | | | | | Health and Healing, | [phone] | | | | | | | | | | | Floor [place], [place] | | | | | | [address] | | | | | | [phone] | | | +--------+---------+ + + + [...] 12/08/2018) for w/HVF 24-2, w/RNFL. Attestations: The traffic engineering technician, under my supervision, is responsible for performing the following sections: RFV, ROS, PMH, PSH, SocHx, FH, Med list, Base Ophth Exam. I have reviewed and edited history and traffic engineering technician documentation, and performed all elements to above examination documentation. Ankita Smith MD Front Maker Lockstitch of Ophthalmology Department of Glaucoma [facility] FURTHER HISTORY: Past Medical History: Diagnosis Date [...] Yes, soft lenses/rarely Flomax use? 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
--- OUTSIDE RECORDS SUMMARY | ~2020-02-10 | XMS | Encounter Summary ---
Demographics + + + | Address | [address] | | | [place] [address] | + + + | Home Phone | | + + + | Preferred Language | Unknown | + + + | Marital Status | | + + + | Mandaen Affiliation | Unknown | + + + | Race | or | + + + | Ethnic Group | Not or | + + + Author + + + | Author | [place] [employer] [facility] | + + + | Organization | [facility] [employer] [facility] [...] Team Providers + +------+ + | Care Window Shade Installer Name | Role | Phone | + [...] or | | 2019 | Visit | [facility] | [address] | juvenile glaucoma | | | | at H [address] | [place], [place] | (Primary Dx) | | | | Ave [facility] | [address] | | | | | Health and Healing, | [phone] | | | | | | | | | | | Floor [place], [place] | | | | | | [address] | | | | | | [phone] | | | +--------+---------+ + + + [...] the Base Ophthalmology Exam, visual acuity, HVF. [facility] Progress Note 04/15/2019 PROBLEM-SPECIFIC ASSESSMENT [...] 537/564 Drop Allergies/Intolerances: STUDIES: Visual Field Interpretation ([facility] 12/10/2018) Myers 24-2 visual field OD [place], MD -29.14, baseline OS inf>sup arcs, MD -3.10, baseline Visual Field Interpretation ([facility] 04/15/2019) Myers 10-2 visual field [...] Soc Hx Examination: See Ophthalmology Module The substance abuse technician, under the supervision of the physician, [...]
--- OUTSIDE RECORDS SUMMARY | ~2020-02-10 | XMS | Encounter Summary ---
Demographics + + + | Address | [address] | | | [place] [address] | + + + | Home Phone | | + + + | Preferred Language | Unknown | + + + | Marital Status | | + + + | Sikhism Affiliation | Unknown | + + + [...] Team Providers + +------+ + | Care Airport Driver Name | Role | Phone | + [...]
--- OUTSIDE RECORDS SUMMARY | ~2020-02-10 | XMS | Clinical Summary ---
Demographics + + + | Address | [address] | | | [place] [address] | + + + | Home Phone | | + + + | Preferred Language | Unknown | + + + | Marital Status | | + + + | Jehovah'S Witness Affiliation | Unknown | + + + [...] Team Providers + +------+ + | Care Puncher Name | Role | Phone | + +------+ + | Marcelle Wills SOUND ART INSTRUCTOR | PCP | | + +------+ + Source Comments SVETLANA is fully live on both [facility] and [facility] InPatient.[facility] Allergies No Known Allergies Medications + [...] Allergies/Intolerances: STUDIES: Visual Field Interpretation | | ([facility] 12/10/2018)Myers 24-2 visual fieldOD [place], MD | | -29.14, baselineOS inf>sup arcs, MD -3.10, baselineVisual Field | | Interpretation ([facility] 04/15/2019)Myers 10-2 visual fieldOD | | [...] if schesis | | playing into things- [facility] 24-2 with progression since 2010, but [...] CROSS | | 19-Pre | 8 | [address] | | | | [place] | | sent | | [place], | | | | L | | | | [place] [address] | | + +--------+ +--------+ + +--------+ [...] Self | [birth year] | | [address] | | | al/Fam | | 1976 | [phone] | [place] | | | ishan | | | 9 (Home) | [address] | + +--------+ +--------+ + + | Aliza Decker | Vision | Self | | | [address] | | | | | | [phone] | [place], [place] | | | | | | 9 (Home) | [address] | + +--------+ +--------+ + +"
[~2020-02-10 11:25] MED LIST changes: +ULTRAM50 MG PO; +VICTOZA 2-0.6 MG/0.1 SUB-Q; +ZESTRIL5 MG PO
[2020-02-10] MEDS ORDERED: OMEPRAZOLE20 MG PO (11:41)
[2020-02-10] MEDS ORDERED: HYDROCHLOROTH12.5 M1 PO (11:41)
== END 2020-02-10 12:31 | disposition home or self-care (01) ==
LOC: ED 11:25
DX: L50.0 Allergic urticaria (principal); T50.8X5A Adverse effect of diagnostic agents, initial encounter; I10 Essential (primary) hypertension; Z87.891 Personal history of nicotine dependence; Z91.018 Allergy to other foods; Z88.2 Allergy status to sulfonamides; Z79.899 Other long term (current) drug therapy
CPT/HCPCS: 94640; 96374; 96375; 99283-25; J0171; J1100; J1200; J7030

== ENCOUNTER 2020-12-21 16:48 | Emergency (ER) | payer BC, OTHER ==
[~2020-12-21] VITALS: Ht 154.9 cm; Wt 113.4 kg
[~2020-12-21 16:48] MED LIST changes: +HYDROCHLOROTH12.5 M1 PO; +OMEPRAZOLE20 MG PO
[2020-12-21] MEDS ORDERED: METOCLOPRAMIDE10 MG PO (17:07)
[2020-12-21] MEDS ORDERED: NORTRIPTYLINE H10 MG PO (17:07)
[2020-12-21] MEDS ORDERED: MORPHINE SULFAT15 MG PO (17:17)
[2020-12-21] MEDS ORDERED: MILLIPRED DP5 M1 PO (17:17)
[2020-12-21] MEDS ORDERED: NEURONTIN400 MG PO (17:17)
== END 2020-12-21 17:24 | disposition home or self-care (01) ==
LOC: ED 16:48
DX: M54.16 Radiculopathy, lumbar region (principal); I10 Essential (primary) hypertension; Z87.891 Personal history of nicotine dependence; Z88.2 Allergy status to sulfonamides; Z91.018 Allergy to other foods; Z91.041 Radiographic dye allergy status; Z79.899 Other long term (current) drug therapy
CPT/HCPCS: 99283

== ENCOUNTER 2022-08-01 11:00 | Observation (INO) | payer BC, OTHER ==
[~2022-08-01] VITALS: Ht 154.9 cm; Wt 94.8 kg
[~2022-08-01 11:00] MED LIST changes: +METOCLOPRAMIDE10 MG PO; +MILLIPRED DP5 M1 PO; +MORPHINE SULFAT15 MG PO; +NEURONTIN400 MG PO; +NORTRIPTYLINE H10 MG PO
[2022-08-01] MEDS ORDERED: CELECOXIB200 MG PO (16:24)
[2022-08-01] MEDS ORDERED: LOSARTAN POTAS100 MG PO (16:25)
[2022-08-01] MEDS ORDERED: ATORVASTATIN CA20 MG PO (16:26)
[2022-08-01] MEDS ORDERED: JOLESSA1 EACH PO (16:28)
--- NOTE | 2022-08-02 15:17 | OR ---
[facility] [place] [facility] [address] [place], [place] [address] Signed DATE OF OPERATION: 08/02/2022 SURGEON: Alexis Menard MD PREOPERATIVE DIAGNOSES: Left-sided abdominal pain. CT scan findings of left-sided colitis. POSTOPERATIVE DIAGNOSES: Probable ischemic colitis, splenic flexure through sigmoid colon with rectal sparing and right-sided colon sparing. PROCEDURE: Total colonoscopy to cecum with multiple biopsies. ANESTHESIA: Intravenous sedation; fentanyl 200 mcg and Versed 7 mg. INDICATION: This 46-year-old woman is a patient of Dr. Justice, hospitalist and additionally POONAM Santiago of the [facility]. She has seen Dr. Slade of [facility] in the past for management of longstanding diarrhea as well as presumed gastroparesis. She was admitted to the hospital by Dr. Justice on yesterday August 01, 2022 with severe left-sided abdominal pain, cramps and profound diarrhea, but no associated bleeding. A CT scan was performed which showed left-sided colitis, considered "infectious colitis." She has undergone a limited bowel prep and is now to undergo colonoscopy to better confirm the colitis as to infectious versus inflammatory bowel disease versus other. The risk of bleeding, infection, and perforation were reviewed with her. She understands and wished to proceed. FINDINGS: Findings are most consistent with ischemic colitis. This extended from the sigmoid proximally to the splenic flexure with right colonic sparing and minimal impact on the transverse colon and no impact on the low sigmoid and rectum. There was no evidence of polyps or diverticulosis. DESCRIPTION OF PROCEDURE: The patient was brought to the endoscopy suite, placed in the lateral decubitus position, given intravenous sedation to the point of slurred speech and nystagmus. Digital rectal examination was normal. Electronically Signed By: ALEXIS MENARD MD 08/02/22 1517 PATIENT NAME: RAJ PAGAN OPERATIVE REPORT DATE OF : 79 REPORT #: [id number] PHYSICIAN: ALEXIS MENARD MD PCP: ADY POLLARD REPORT IS CONFIDENTIAL AND NOT TO BE RELEASED WITHOUT AUTHORIZATION [facility] [address] [place], [place] [address] Signed An Olympus video colonoscope was passed in the rectum and manipulated into the low sigmoid, which was normal. Passage into the descending colon and more proximal sigmoid showed ulcerative changes highly suggestive of ischemic colitis rather than ulcerative colitis proper. The scope was advanced through the left colon, which was certainly well involved in similar process and beyond the splenic flexure. Upon presentation to the transverse colon, normal-appearing mucosa was once again noted and ultimately to the cecum which was completely normal. Biopsies were taken of the cecum. The scope was then withdrawn and biopsies taken of the transition point in the transverse colon. The splenic flexure, left colon, sigmoid and low sigmoid as well as rectum were all biopsied. The findings were most consistent with ischemic colitis as noted. Scope was removed and the patient was taken to the recovery room in good condition. CONCLUDING DIAGNOSIS: Most likely ischemic colitis; biopsies will be revealing. At this point, would recommend antibiotics, low-fiber diet and not likely to benefit from steroids at this point. Continued observation would be appropriate in the hospital setting given her current symptoms, so as to maintain hydration and adventism of blood flow to the ischemic mucosa. Alexis Menard MD JM/MODL /[id number] cc: POONAM Santiago MD Copies: BIGG JUSTICE MD ~ Electronically Signed By: ALEXIS MENARD MD 08/02/22 1517 PATIENT NAME: RAJ PAGAN OPERATIVE REPORT DATE OF : 79 REPORT #: [id number] PHYSICIAN: ALEXIS MENARD MD PCP: ADY POLLARD REPORT IS CONFIDENTIAL AND NOT TO BE RELEASED WITHOUT AUTHORIZATION
--- NOTE | 2022-08-02 15:39 | CONS ---
[facility] [address] [place], [place] [address] Signed DATE OF CONSULTATION: 08/01/2022 TIME: 6:00 p.m. REQUESTING PHYSICIAN: Dr. Bigg Justice. PROBLEM: Longstanding diarrhea and CT scan findings of "colitis." HISTORY OF PRESENT ILLNESS: This 46-year-old [place] woman is accompanied by her several family members including her . She was admitted by Dr. Justice today having presented to the emergency room and evaluated by Dr. Garzon. She is known to have chronic diarrhea since 2019. She has been under the care of Dr. Slade in the [facility], who has in the past performed colonoscopy showing only polyps and upper endoscopy confirming Mccall's esophagus and said to have gastroparesis. She is said to have had a solid food emptying study. She was using Reglan, which was of no value and ultimately nortriptyline, which has been helpful regarding her symptoms. Diarrhea is controlled by loperamide. In the past 48 hours, she has had increasing cramping abdominal pain and diarrhea. Her symptoms became intractable and she presented to the emergency room where she was found to have left-sided and right-sided abdominal pain and elevated white count of 16,[address] scan showing inflammatory changes of the colon. On that basis, she was admitted. CURRENT MEDICINES: At time of admission include hydrochlorothiazide, omeprazole for reflux, nortriptyline, Reglan 10 mg at bedtime, bupropion XL, diphenhydramine, lisinopril, morphine sulfate at bedtime for pain, prednisone minimal dose with tapering and gabapentin and Zofran. REVIEW OF SYSTEMS: She denies any hematemesis or actual blood per rectum. She has vague abdominal pain, both right and left sides. Her diarrhea is persistent. PHYSICAL EXAMINATION: GENERAL: This is an obese and dark-skinned woman, who looks to be in no acute distress and without sign of systemic toxicity. NECK: Trachea is midline. CHEST: Shows normal respiratory excursion. Pulses regular. ABDOMEN: Obese, but soft, easily palpated. There is no focal mass or tenderness at this time. She has no ascites. EXTREMITIES: Show no clubbing, cyanosis, or edema. Height is 5 feet 1 inch, weight is Electronically Signed By: ALEXIS MENARD MD 08/02/22 1539 PATIENT NAME: RAJ PAGAN CONSULTATION DATE OF : 79 REPORT #: [id number] PHYSICIAN: ALEXIS MENARD MD PCP: ADY POLLARD-Daniel REPORT IS CONFIDENTIAL AND NOT TO BE RELEASED WITHOUT AUTHORIZATION [facility] [address] [place], [place] [address] Signed 94.8 kg, BMI 39.5. LABORATORY STUDIES: Show normal electrolytes. Creatinine 0.89. Liver enzymes normal. Lipase 132. Beta HCG negative. White count of 16.3, hematocrit 48.4, platelets of 446,000. Serology for COVID and influenza is negative. Urinalysis is normal except for positive bilirubin. I have reviewed her CT scan in detail and I have reviewed Dr. Justice's note as well. ASSESSMENT: The patient has presumed colitis based on CT scan findings and diarrhea. It is notable she has had two years of diarrhea managed symptomatically with loperamide and with a colonoscopy two years ago showing only polyps. Findings of inflammation at this time can be indicative of a primary colitis such as ulcerative colitis, Crohn disease or an occult colitis including lymphocytic colitis, collagenous colitis, and so forth. Colonoscopy at this point would be appropriate to better assess this problem. The patient strongly gastroparesis to the diarrhea; she told me that she was not taking Reglan much, but her medication list as described use of Reglan daily. We will have to figure this out more fully. The CT scan findings include diffuse colonic wall thickening in the left colon and sigmoid, suggestive of infectious colitis. I would recommend colonoscopy be undertaken to better characterize the inflammatory changes. To my knowledge, she has not had any evaluation for C difficile, which would be appropriate as well, though she has not been on any antibiotic regimen recently that we are aware of. The risks of bleeding, infection, and perforation related to colonoscopy were reviewed in detail with her. She understands and wished to proceed. Despite her diarrhea, a bowel prep of sorts will be required more fully characterize mucosa of the colon. MD KULWANT Mcnamara/MODL /[id number] cc: Bigg Justice MD Electronically Signed By: ALEXIS MENARD MD 08/02/22 1539 PATIENT NAME: RAJ PAGAN CONSULTATION DATE OF : 79 REPORT #: [id number] PHYSICIAN: ALEXIS MENARD MD PCP: ADY POLLARD REPORT IS CONFIDENTIAL AND NOT TO BE RELEASED WITHOUT AUTHORIZATION [facility] [address] [facility] [place], [place] [address] Signed Copies: BIGG JUSTICE MD ~ Electronically Signed By: ALEXIS MENARD MD 08/02/22 1539 PATIENT NAME: RAJ PAGAN CONSULTATION DATE OF : 79 REPORT #: [id number] PHYSICIAN: ALEXIS MENARD MD PCP: ADY POLLARD-Daniel REPORT IS CONFIDENTIAL AND NOT TO BE RELEASED WITHOUT AUTHORIZATION
[2022-08-03] MEDS ORDERED: CIPROFLOXACIN500 MG PO (15:04)
[2022-08-03] MEDS ORDERED: METRONIDAZOLE250 MG PO (15:05)
[2022-08-03] MEDS ORDERED: DICYCLOMINE HCL10 MG PO (15:06)
[2022-08-03] MEDS ORDERED: OXYCODONE-ACET1 EAC3 PO (15:06)
--- NOTE | 2022-08-06 15:17 | PATH ---
[facility] [address] [facility] [place], [place] [address] Signed SPECIMEN(S): A CECUM COLON BIOPSY SPECIMEN(S): B TRANSVERSE COLON BIOPSY SPECIMEN(S): C SPLENIC FLEXURE COLON BIOPSIES SPECIMEN(S): D DESCENDING/LEFT COLON BIOPSIES SPECIMEN(S): E SIGMOID COLON BIOPSY SPECIMEN(S): F COLON BIOPSIES AT 40CM SPECIMEN(S): G DISTAL SIGMOID COLON BIOPSIES SPECIMEN(S): H RECTUM BIOPSIES SPECIMEN SOURCE: A. CECUM COLON BIOPSY B. TRANSVERSE COLON BIOPSY C. SPLENIC FLEXURE COLON BIOPSIES D. DESCENDING/LEFT COLON BIOPSIES E. SIGMOID COLON BIOPSY F. COLON BIOPSIES AT 40CM G. DISTAL SIGMOID COLON BIOPSIES H. RECTUM BIOPSIES CLINICAL HISTORY: Left-sided colitis, chronic diarrhea, abdominal pain, history of polyps 2020. Postop Dx: Probable ischemic colitis. FINAL PATHOLOGIC DIAGNOSIS: A. Cecum colon biopsy: - Benign colonic mucosa, negative for pathologic inflammation or dysplasia. B. Transverse colon biopsy: - Benign colonic mucosa, negative for pathologic inflammation or dysplasia. C. Splenic flexure colon biopsies: - Benign colonic mucosa, negative for pathologic inflammation or dysplasia. D. Descending / left colon biopsies: - Benign colonic mucosa with slight crypt atrophy and stromal active inflammation. - Negative for dysplasia or evidence of malignancy. - See comment. E. Sigmoid colon biopsy: - Benign colonic mucosa with slight crypt atrophy and stromal active inflammation. - Negative for dysplasia or evidence of malignancy. - See comment. F. Colon, biopsies at 40 cm: PATIENT NAME: REYES PAGANVISHAL KAUFFMAN PATHOLOGY DATE OF : 79 REPORT #: [id number] PHYSICIAN: JOSE SAN PCP: ADY POLLARD REPORT IS CONFIDENTIAL AND NOT TO BE RELEASED WITHOUT AUTHORIZATION [facility] [address] [place], [place] [address] Signed - Colonic mucosa with focal ulcerative, crypt atrophy, stromal and lamina propria fibrosis and mixed inflammation. - Negative for evidence of dysplasia. - See comment. G. Distal sigmoid colon biopsies. - Benign colonic mucosa, negative for pathologic inflammation or evidence of dysplasia or malignancy. H. Rectum biopsies: - Benign colonic mucosa with slight hyperplastic epithelial features, negative for pathologic inflammation, dysplasia, or malignancy. COMMENT: The patient's history of suspected ischemic colitis is noted. The features noted on specimen F (and to a lesser extent, specimens D and E) are compatible with this history. JVR:patrizia:C2NR MICROSCOPIC EXAMINATION: Histologic sections of all submitted blocks are examined by light microscopy. These findings, together with the gross examination, support the pathologic diagnosis. GROSS DESCRIPTION: A. The specimen, labeled and designated "Foster, cecum colon biopsy," is received in formalin and consists of one diaz soft tissue fragment, 0.6 cm. Entirely submitted in (A1). B. The specimen, labeled and designated "Foster, transverse colon biopsy," is received in formalin and consists of two diaz soft tissue fragments, ranging from 0.1-0.2 cm. Entirely submitted in (B1). C. The specimen, labeled and designated "Foster, splenic flexure colon biopsy," is received in formalin and consists of three diaz soft tissue fragments, ranging from 0.1-0.3 cm. Entirely submitted in (C1). D. The specimen, labeled and designated "Foster, left colon biopsy," is received in formalin and consists of five diaz soft tissue fragments, ranging from 0.2-0.4 cm. Entirely submitted in (D1). E. The specimen, labeled and designated "Jeronimo, sigmoid colon biopsy," is received in formalin and consists of one diaz soft tissue fragment, 0.3 cm. Entirely submitted in (E1). F. The specimen, labeled and designated "Jeronimo, colon biopsies at 40 cm," is PATIENT NAME: RAJ PAGAN PATHOLOGY DATE OF : 79 REPORT #: [id number] PHYSICIAN: JOSE SAN PCP: ADY POLLARD REPORT IS CONFIDENTIAL AND NOT TO BE RELEASED WITHOUT AUTHORIZATION [facility] [address] [place], [place] [address] Signed received in formalin and consists of two diaz soft tissue fragments, ranging from 0.1-0.3 cm. Entirely submitted in (F1). G. The specimen, labeled and designated "Jeronimo, distal sigmoid colon biopsy," is received in formalin and consists of three diaz soft tissue fragments, ranging from 0.2-0.3 cm. Entirely submitted in (G1). H. The specimen, labeled and designated "Jeronimo, rectum biopsies," is received in formalin and consists of three diaz soft tissue fragments, ranging from 0.1-0.2 cm. Entirely submitted in (H1). VB (under the direct supervision of a pathologist) The Gross Description was prepared using a voice recognition system. The report was reviewed for accuracy; however, sound-alike word errors, addition and/or deletions may occur. If there is any question about this report, please contact Client Services. PERFORMING LABORATORY: The technical component was performed by [facility], [address] [place] [id number] (CLIA# [id number]). Professional interpretation was performed by [facility], [address] [place] [id number] (CLIA#: [id number]). Diagnostician: Gary Campos MD Pathologist Electronically Signed 08/06/2022 Copies: ~ PATIENT NAME: RAJ PAGAN PATHOLOGY DATE OF : 79 REPORT #: [id number] PHYSICIAN: JOSE SAN PCP: ADY POLLARD REPORT IS CONFIDENTIAL AND NOT TO BE RELEASED WITHOUT AUTHORIZATION
== END 2022-08-03 15:54 | disposition home or self-care (01) ==
LOC: ED 11:00 → MS 11:02 → ED 13:10 → MS 08-03 15:54
PROVIDERS: Surgery; ADMIT Internal Medicine; ATTEND Internal Medicine
PROC: 0DBL8ZX Excision of Transverse Colon, Via Natural or Artificial Opening Endoscopic, Diagnostic (ICD-10-PCS; 2022-08-02)
PROC: 0DBN8ZX Excision of Sigmoid Colon, Via Natural or Artificial Opening Endoscopic, Diagnostic (ICD-10-PCS; 2022-08-02)
PROC: 0DBP8ZX Excision of Rectum, Via Natural or Artificial Opening Endoscopic, Diagnostic (ICD-10-PCS; 2022-08-02)
PROC: 0DBM8ZX Excision of Descending Colon, Via Natural or Artificial Opening Endoscopic, Diagnostic (ICD-10-PCS; 2022-08-02)
PROC: 0DBH8ZX Excision of Cecum, Via Natural or Artificial Opening Endoscopic, Diagnostic (ICD-10-PCS; principal; 2022-08-02 13:30)
DX: K55.039 Acute (reversible) ischemia of large intestine, extent unspecified (principal); K52.9 Noninfective gastroenteritis and colitis, unspecified; K63.89 Other specified diseases of intestine; K76.0 Fatty (change of) liver, not elsewhere classified; I10 Essential (primary) hypertension; E78.5 Hyperlipidemia, unspecified; F32.A Depression, unspecified; F51.04 Psychophysiologic insomnia; Z88.2 Allergy status to sulfonamides; Z91.018 Allergy to other foods
CPT/HCPCS: 36415; 74176; 80053; 81003; 83690; 83735; 84703; 85025; 87045; 87502; 96361; 96372; 96374; 96375; 96376; 99153; 99285-25; A9270; C9803; G0378; G0500; J0500; J0744; J1170; J1650; J2250; J2270; J2405; J3010; J7030; J7121; U0003

== ENCOUNTER 2023-06-05 10:25 | Day surgery (SDC) | payer BC, OTHER ==
[2023-06-04 11:20] VITALS: BP 137/96
[~2023-06-05] VITALS: Ht 154.9 cm; Wt 93.2 kg
[~2023-06-05 10:25] MED LIST changes: +ALLEGRA ALLERG180 MG PO; +ATORVASTATIN CA20 MG PO; +CELECOXIB200 MG PO; +CIPROFLOXACIN500 MG PO; +DICYCLOMINE HCL10 MG PO; +FLONASE ALLERG9.9 ML; +JOLESSA1 EACH PO; +LOPERAMIDE2 MG PO; +LOSARTAN POTAS100 MG PO; +METRONIDAZOLE250 MG PO; +OXYCODONE-ACET1 EAC3 PO
[2023-06-05 10:51] VITALS: BP 155/96
[2023-06-05 10:57] LABS: BASOPHILS, ABSOLUTE 0.1 %; EOSINOPHILS 3.6 % (0-6); EOSINOPHILS, ABSOLUTE 0.3; HEMATOCRIT 44.9 % (35.0-50.0); HEMOGLOBIN 15.4 g/dL (12.0-18.0); LYMPHOCYTES 25.8 % (24-44); LYMPHOCYTES, ABSOLUTE 2.4; MCHC 34.3 g/dl (30-36); MCV 87.5 fl (81-99); MONOCYTES 5.8 % (0-12); MONOCYTES, ABSOLUTE 0.5; NEUTROPHILS 63.8 % (39-80); PLATELET COUNT 401 K/uL (140-440); RBC 5.13 M/ul (4.3-5.7); RDW 13.4 (10.5-15.0)
--- NOTE | 2023-06-05 11:15 | NUR ---
denies pain/burning at first iv site now. had refused to have lidocaine used with iv start.
--- NOTE | 2023-06-05 13:18 | NUR ---
06/05/23 1318 Poppy Lim 1226- PT ARRIVES TO PACU, PRONE WITH O2 AT 6L AND LR INFUSING TO RH IV. PT NON REACTIVE TO STIMULUS AT THIS TIME. BANDAIDS IN PLACE TO BIOPSY SITES, CDI. ALL MONITORS IN PLACE. 1245- PT WAKES SELF, REORIENTED TO TIME AND PLACE. O2 REMOVED AT THIS TIME. PT C/O 8/10 PAIN TO BIOPSY SITES AND LOW BACK. PT ASSISTED TO RIGHT SIDE. CALLING GUILLERMO MORALES FOR ORDERS FOR PAIN. 1258- PT REPOSITIONED SELF TO BACK TRYING TO FIND A COMFORTABLE WAY TO LAY. PT HAS KNEES UP AND IS ROCKING IN BED. PAIN 8-9/10. ORDERS RECEIVED FROM GUILLERMO. 1301- PT MEDICATED WITH 25 MCG FENTANYL IV, TYLENOL 1000 MG IV STARTED AT THIS TIME. 1307- PT REPORTS NO CHANGE IN PAIN WITH INITIAL FENTANYL, 2ND DOSE OF 25 MCG GIVEN AT THIS TIME. 1310- PT BACK TO RIGHT SIDE, PILLOW PLACED BEHIND BACK, PT REPORTS IT'S JUST UNCOMFORTABLE HOWEVER SHE IS POSITIONED. 1317- PT REPORTS PAIN DOWN TO 7/10 AT THIS TIME, BURNING TO BIOPSY SITES. 3RD DOSE OF FENTANYL 25 MCG GIVEN, ICE PLACED TO SITES. WILL CONTINUE TO MONITOR.
[2023-06-05 13:38] VITALS: BP 145/96
--- NOTE | 2023-06-14 20:04 | PATH ---
[facility] [address] [facility] [place] [address] Signed THIS IS AN ADDENDUM REPORT SPECIMEN(S): A BONE MARROW - LEFT CORE SPECIMEN(S): B BONE MARROW - ASPIRATION SPECIMEN(S): C FLOW CYTOMETRY, BM EDTA CLINICAL HISTORY: 47-year-old female with leukocytosis and erythrocytosis. C92.10 (chronic myeloid leukemia). DIAGNOSIS SUMMARY: Peripheral blood - No abnormal morphologic findings identified. Bone marrow aspirate smears, clot section/cell block and trephine biopsy: - Normocellular bone marrow with trilineage progressive hematopoiesis. - Negative for morphologic features of myelodysplastic syndrome. - Negative for morphologic features of myeloproliferative neoplasm. - Negative for increase in plasma cells or infiltrative bone marrow process. - See Diagnostic Comment. DIAGNOSTIC COMMENT: Morphologic evaluation of bone marrow aspirate smears and core biopsy is essentially within normal range with no dyspoiesis identified. No definite features suggestive of myeloproliferative neoplasm is identified. However, clinical concern for myeloproliferative neoplasm is noted and studies for JAK2, BCR-ABL, and cytogenetic analysis are pending and will be reported in an addendum. [place] [place]: HEMOGRAM ([facility], 06/05/23): WBC 9.5 K/uL, RBC 5.13 M/uL, HGB 15.4 g/dL, HCT 44.9%, MCV 87.5 fL, MCH 30.0 pg, MCHC 34.3 g/dL, RDW 13.4%, PLT 401 K/uL. DIFFERENTIAL COUNT (manual): 57% neutrophils, 32% lymphocytes, 4% monocytes, 5% eosinophils, 2% basophils. Review of peripheral blood smear and CBC data demonstrate that the RBCs are normal in number and are normocytic, normochromic with no anemia present. No rouleaux formation or nucleated RBCs are encountered. The WBCs are normal in number and distribution. The neutrophils show unremarkable morphology. There are no immature cells/blasts identified. The lymphocytes show a spectrum of PATIENT NAME: RAJ PAGAN PATHOLOGY DATE OF : 79 REPORT #: [id number] PHYSICIAN: JOSE SAN PCP: JABIER CHRISTIANSON UTILITIES ESTIMATOR AND DRAFTER-BC REPORT IS CONFIDENTIAL AND NOT TO BE RELEASED WITHOUT AUTHORIZATION [facility] [address] [place], [place] [address] Signed reactive morphology including occasional large granular lymphocytes. The platelets are normal in number and unremarkable in morphology. BONE MARROW: BONE MARROW ASPIRATE SMEARS: The bone marrow aspirate smears are adequately cellular for evaluation. Trilineage hematopoiesis is present with progressive ordinary maturation. There is no increase in blasts present. The M:E ratio appears normal. No dyshematopoiesis is identified. No increase in plasma cells is identified. The megakaryocytes are scattered and appear normal in number and morphology. BONE MARROW DIFFERENTIAL: 1% blasts, 10% myelocytes, 35% neutrophils, 6% lymphocytes, 3% eosinophils, 2% plasma cells, and 43% erythroid. BONE MARROW CORE BIOPSY AND CLOT SECTION: The bone marrow core biopsy demonstrates normocellular bone marrow for age with an averaging cellularity of 50%. Trilineage hematopoiesis is present with progressive ordinary maturation. There is no increase in blasts present. There are no lymphoid aggregates, granulomas, or metastatic tumor cells present. The megakaryocytes are scattered and appear normal in number and distribution. The clot section shows similar findings. SPECIAL STAINS (are performed with appropriate reactive controls and show the following results): - Iron (aspirate smears): Storage iron present, markedly decreased, negative for ring sideroblast. - Iron (block B1): Storage iron present. - Reticulin (block A1): Mild increase in bone marrow reticulin fibrosis (MF-1). IMMUNOHISTOCHEMICAL STAINS (are performed on block A1, with appropriate reactive controls, and show the following results): - CD34: Negative for increased number of blasts (1%). - CD117: Negative for increased number of blasts (1%). - Myeloperoxidase: Highlights myeloid precursors with normal pattern of distribution. - CD71: Highlights erythroid precursors with normal pattern of distribution. - Factor VIII: Highlights adequate megakaryocytes. FLOW CYTOMETRY: Bone marrow aspirate, flow cytometry: - No increase in blasts (1.6% myeloblasts). - Normal myeloid maturation. - No atypical lymphoid cell population. PATIENT NAME: RAJ PAGAN PATHOLOGY DATE OF : 79 REPORT #: [id number] PHYSICIAN: JOSE PATHOLOGY PCP: JABIER CHRISTIANSON [facility] REPORT IS CONFIDENTIAL AND NOT TO BE RELEASED WITHOUT AUTHORIZATION [address] [address] Signed - See Comment. COMMENT: While no hematopoietic abnormality is detected in this study, correlation with clinical, morphologic, and genetic findings is recommended for full interpretation and to assess for disease processes not fully examined by flow cytometry analysis, including myelodysplastic syndrome and myeloproliferative neoplasm. FLOW CYTOMETRY ANALYSIS: FLOW DIFFERENTIAL (% Total CD45 vs. SSC gating): Myeloid 75%; Lymphoid 10%; Monocyte 2%; Dim CD45/Blast: 1.6%. Cell Count: 9.0 x 10*3/uL. POPULATION ANALYSIS: BLASTS: Analysis of the dim CD45 gate demonstrates 1.6% myeloblasts by CD34/CD117 and 0.2% hematogones. LYMPHOID CELLS: The lymphocyte gate comprises 10% of total events and includes 75% T-cells with a CD4:CD8 ratio of 1.6:1 and normal reid T-cell antigen expression. 13% of lymphocytes are polyclonal B-cells with a kappa:lambda ratio of 1.4:1. The remainders are NK-cells. MYELOID CELLS: The myeloid population comprises 75% of the total events. No aberrant immunophenotypic expression is detected. MONOCYTES: The monocyte population comprises 2% of the total events. Monocytes are not increased. No aberrant immunophenotypic expression is detected. PLASMA CELLS: 0.1% plasma cells are detected in the screening gate neg-dimCD45/CD38. Plasma cells are CD45 dim and positive for CD19. ANTIBODIES USED: KAPPA, LAMBDA, CD20, CD10, CD19, CD23, CD38, CD16, CD56, CD8, CD5, CD2, CD4, CD7, CD3, CD14, CD33, CD13, HLADR, CD34, CD117, CD15, CD45: TOTAL ANTIBODIES USED: 23. [facility] FINAL DIAGNOSIS PERFORMED BY: Madina Braun MD, Jun 07, 2023 at 4:56 PM CYTOGENETICS: Pending; results to be reported by addendum. MOLECULAR / PCR: Pending; results to be reported by addendum. GROSS DESCRIPTION: Two specimens are received in two containers. A. The specimen, labeled and designated "Foster, O, bone marrow left core," is received in formalin and consists of a portion of diaz-red, soft tissue and bone measuring 1.8 x 0.2 x 0.2 cm in PATIENT NAME: RAJ PAGAN PATHOLOGY DATE OF : 79 REPORT #: [id number] PHYSICIAN: JOSE PATHOLOGY PCP: JABIER CHRISTIANSON [facility]- REPORT IS CONFIDENTIAL AND NOT TO BE RELEASED WITHOUT AUTHORIZATION [facility] [address] [place], [place] [address] Signed aggregate. The specimen is submitted entirely in (A1), following decalcification in Immunocal. B. The specimen, labeled and designated "Jeronimo, Rebecca, bone marrow clot," is received in formalin and consists of a portion of red-brown, clot-like material measuring 2.0 x 0.8 x 0.4 cm in aggregate. The specimen is submitted entirely in (B1). MMA (under the direct supervision of a pathologist) The Gross Description was prepared using a voice recognition system. The report was reviewed for accuracy; however, sound-alike word errors, addition and/or deletions may occur. If there is any question about this report, please contact Client Services. ADDITIONAL NOTES: Immunohistochemical and/or in situ hybridization studies if performed in this case included appropriate positive controls that reacted as expected. This test was developed, and its performance characteristics determined by [facility]. It has not been cleared or approved by the U.S. Food and Drug Administration. The FDA has determined that such clearance or approval is not necessary. This test is used for clinical purposes. It should not be regarded as investigational or for research. [facility] is certified under the Clinical Laboratory Improvement Amendments of 1988 (CLIA) as qualified to perform high complexity clinical laboratory testing. In this case, certain antibodies were performed by both immunohistochemistry and flow cytometry analysis because flow cytometry analysis did not fully explain all the light microscopic findings. Immunohistochemistry aided in the analysis. Both methods are deemed medically necessary in this case. This test was developed, and its performance characteristics determined by [facility]. It has not been cleared or approved by the US Food and Drug Administration. The FDA does not require this test to go through premarket FDA review. This test is used for clinical purposes. It should not be regarded as investigational or for research. This laboratory is certified under the Clinical Laboratory Improvement Amendments (CLIA) as qualified to perform high complexity clinical laboratory testing. PERFORMING LABORATORY: The technical preparation was performed by [facility], [address] [facility] [place] [address] (CLIA#: [id number]). Professional PATIENT NAME: RAJ PAGAN PATHOLOGY DATE OF : [birth year] REPORT #: [id number] PHYSICIAN: JOSE SAN PCP: JABIER CHRISTIANSON [facility] REPORT IS CONFIDENTIAL AND NOT TO BE RELEASED WITHOUT AUTHORIZATION [facility] [address] [place] [address] Signed interpretation was performed by [facility], [address] [place] [address] (CLIA# [id number]). Technical component was performed by [facility], [address] [place] [address] (CLIA# [id number]). Professional interpretation was performed by [facility], [address] [place] [address] (CLIA# [id number]). IMAGES: A: [id number] A: [id number] SPECIMEN SOURCE: A. FISH Analysis, CML FISH, BM ASP CLINICAL HISTORY: 47-year-old female with leukocytosis and erythrocytosis. C92.10 (chronic myeloid leukemia). FISH (fluorescence in situ hybridization) RESULT: Not Detected INTERPRETATION: BCR/ABL1 t(9;22) rearrangement: Not detected. Fluorescence in situ hybridization (FISH) analysis was performed using a tricolor, dual fusion BCR/ABL1 probe set used to detect the (9;22) translocation associated with CML and less commonly ALL or AML. The tri color probe set also detects derivative chromosome 9 deletions. All probe signals were within the normal reference range. This represents a NORMAL result. This analysis is limited to abnormalities detectable by the specific probes included in the study. FISH should be interpreted within the context of a full cytogenetic analysis and hematologic evaluation. ISCN: Probe Set Detail: BCR/ABL1/ASS1 t(9;22): nuc harpreet 9q34(ASS1, ABL1)x2,22q11.2(BCRx2)[200] References: [employer] of Genetics and Cytogenetics in Oncology and Hematology [email or web address] FISH Analysis Summary: Nuclei Scored: 200 Scoring Method: Manual; CPT Code 23988 Number of Probe units: 1 Multiplex Cells analyzed: Interphase PATIENT NAME: RAJ PAGAN PATHOLOGY DATE OF : 79 REPORT #: [id number] PHYSICIAN: JOSE PATHOLOGY PCP: JABIER CHRISTIANSON- REPORT IS CONFIDENTIAL AND NOT TO BE RELEASED WITHOUT AUTHORIZATION [facility] [address] [place] [address] Signed Probe sets: Chrom 9: ABL1, Chrom 9: ASS1, Chrom 22: BCR ADDITIONAL NOTES: This test was developed and its performance characteristics determined by [facility], [employer]. It has not been cleared or approved by the US Food and Drug Administration. The [employer] probe vendor for this study was [employer]. PERFORMING LABORATORY: The technical component of the FISH testing was performed by [facility], [address] [place] [address] (CLIA#: [id number]). Professional interpretation was performed by [facility], [address] [place] [address], [place] [address] (CLIA#: [id number]). FINAL DIAGNOSIS PERFORMED BY: Duke Nur MD, Pathologist Jun 11 2023 3:07PM REASON FOR ADDENDUM: To add results of additional testing. To report results of additional testing. Bone marrow, cytogenetic analysis: Karyotype: 46,XX[20] Interpretation: NORMAL KARYOTYPE Cytogenetic analysis shows a normal female karyotype in all cells analyzed. Comments: Standard cytogenetic analysis may not detect subtle submicroscopic rearrangements and may not include metaphases from abnormal cell populations with low mitotic rates or present in low levels. Analysis Code: [id number], QC ([id number]) Case report prepared by Fernandez Segovia MD, [facility] (Employee ID: [id number]). Test Detail: Metaphases Counted: 20 Metaphases Analyzed: 20 Metaphases Karyotyped: 2 Culture Type: 24EB, 48EB Banding Technique: GTG Banding Resolution: 400 CPT Codes: 61379, 86354*, 32237 *Professional interpretation service generally billed directly to carriers by [employer]. PATIENT NAME: RAJ PAGAN PATHOLOGY DATE OF : [birth year] REPORT #: [id number] PHYSICIAN: JOSE PATHOLOGY PCP: JABIER CHRISTIANSON UTILITIES ESTIMATOR AND DRAFTER-BC REPORT IS CONFIDENTIAL AND NOT TO BE RELEASED WITHOUT AUTHORIZATION [facility] [address] [place] [address] Signed The Accessioning Component and Technical Component Processing of this test was completed at [employer] [address] / [address] / [phone] / CLIA # [id number] / Supervisor Photostat(s): Edwardo Pham M.D. The Technical Component Analysis of this test was completed at [employer] [facility], [address] [place] [address] / [address] / [phone] / CLIA # [id number] / Supervisor Photostat(s): Louise Ramos M.D. The Professional Component of this test was completed at [employer] [place], [address] [place] [address] / [address] / [phone] / CLIA # [id number] / Supervisor Photostat(s): Victor Manuel Duke M.D. Analysis Code(s): [id number], [id number] Interpretation Code(s): [id number] (Accession/CaseNo: [id number]) The performance characteristics of this test have been determined by the performing laboratory. This test has not been approved by the FDA. The FDA has determined such clearance or approval is not necessary. This laboratory is CLIA certified to perform high complexity clinical testing. Images that may be included within this report are lead customer service representative of the patient but not all testing in its entirety and should not be used to render a result. The CPT codes provided with our test descriptions are based on AMA guidelines and are for informational purposes only. Correct CPT coding is the sole responsibility of the billing libertarian. Please direct any questions regarding coding to the payer being billed. Diagnostician: Duke Nur MD Pathologist Diagnostician: Madina Braun MD Pathologist Electronically Signed 06/14/2023 Copies: ~ PATIENT NAME: RAJ PAGAN PATHOLOGY DATE OF : 79 REPORT #: [id number] PHYSICIAN: JOSE SAN PCP: JABIER CHRISTIANSON [facility] REPORT IS CONFIDENTIAL AND NOT TO BE RELEASED WITHOUT AUTHORIZATION
== END 2023-06-05 13:50 | disposition home or self-care (01) ==
LOC: DS 10:25
PROVIDERS: ATTEND Specialist
PROC: 07DT3ZX Extraction of Bone Marrow, Percutaneous Approach, Diagnostic (ICD-10-PCS; 2023-06-05)
PROC: 079T3ZX Drainage of Bone Marrow, Percutaneous Approach, Diagnostic (ICD-10-PCS; principal; 2023-06-05 12:00)
DX: D72.823 Leukemoid reaction (principal); F32.A Depression, unspecified; I10 Essential (primary) hypertension
CPT/HCPCS: 01112; 36415; 84703; 85025; J0131; J2001; J2405; J2704; J3010; J7121